=== PATIENT | female | born 1945 | race Caucasian/White ===

== ENCOUNTER 2018-07-05 06:15 | Day surgery (SDC) | payer MEDICARE, BC ==
[2018-07-05] MEDS ORDERED: NITROGLYCERIN SL TABS 0.4 MG TAB SUBLINGUAL PRN ×2 (06:22→08:46)
[2018-07-05] MEDS ORDERED: ALPRAZolam 0.5 MG TAB PO PRN (06:22)
[2018-07-05] MEDS ORDERED: ASPIRIN 325 MG TAB PO STA (06:22)
[2018-07-05] MEDS ORDERED: ALPRAZolam 0.25 MG TAB PO PRN (06:22)
[2018-07-05] MEDS ORDERED: SODIUM CHLORIDE 0.9% 1,000 ML in EMPTY BAG 1 BAG IV ONE (06:22)
[2018-07-05] MEDS ORDERED: ATORVASTATIN 80 MG TAB PO STA (06:22)
[2018-07-05] MEDS ORDERED: MIDAZOLAM 2 MG/2 ML VIAL IVP ONE (07:40)
[2018-07-05] MEDS ORDERED: LIDOCAINE 1% INJ 10MG/ML (20 ML MDV) SQ ONE (07:44)
[2018-07-05] MEDS ORDERED: fentaNYL (PF) 50 MCG/ML 2 ML AMP IVP ONE ×2 (07:48→08:04)
[2018-07-05] MEDS ORDERED: VERAPAMIL SYRINGE (5 MG/10 ML) INTRAARTER ONE (07:48)
[2018-07-05] MEDS ORDERED: HEPARIN SODIUM 1,000 UN/ML (10ML VL) IV ONE ×2 (07:50→08:27)
[2018-07-05] MEDS ORDERED: NITROGLYCERIN 1000MCG/10ML SYRINGE INTRACORON ONE (08:23)
[2018-07-05] MEDS ORDERED: IOPAMIDOL-370 150ML BTL INJ ONE (08:27)
[2018-07-05] MEDS ORDERED: TICAGRELOR 90 MG TAB PO ONE (08:30)
[2018-07-05] MEDS ORDERED: IOPAMIDOL-370 100ML BTL INJ ONE (08:34)
[2018-07-05] MEDS ORDERED: CLOPIDOGREL 75 MG TAB PO PRN (08:45)
[2018-07-05] MEDS ORDERED: MAG HYDROX/AL HYDROX/SIMETH 30 ML CUP PO PRN (08:46)
[2018-07-05] MEDS ORDERED: RX INFO: IV CONTRAST WAS GIVEN 1 EACH MISC MISCELLANE PRN (08:46)
[2018-07-05] MEDS ORDERED: ATROPINE SULFATE 0.1 MG/ML 10ML SYRINGE IV PRN (08:46)
[2018-07-05] MEDS ORDERED: ZOLPIDEM 5 MG TAB PO PRN (08:46)
[2018-07-05] MEDS ORDERED: TICAGRELOR 90 MG TAB PO SCH (09:00)
[2018-07-05] MEDS ORDERED: SODIUM CHLORIDE 0.9% 1,000 ML IV SCH (09:00)
[2018-07-05] MEDS: ACETAMINOPHEN TAB 325 MG TAB PO PRN ×3 (09:50→21:24)
--- NOTE | 2018-07-05 10:30 | CC ---
CARDIAC CATHETERIZATION REPORT CARDIAC CATHETERIZATION AND PERCUTANEOUS CORONARY INTERVENTION DATE OF SERVICE: July 05, 2018 PERFORMING PHYSICIAN: Joseph Curran MD, explosive expert. PROCEDURE PERFORMED: 1. Selective right and left coronary angiogram. 2. Left heart catheterization. 3. Successful stenting of the mid left circumflex using 3.0 x 33 mm Xience drug- eluting stent with an excellent angiographic result and reduction of stenosis from 80% to 90% to 0%. INDICATION: This is a 73-year-old female patient with history of peripheral arterial disease as well as hypertension and dyslipidemia and prior history of smoking was experiencing feeling fatigued and tired and has no energy. She underwent an echocardiogram which revealed normal LV function with mild LVH. Because of that, she was advised to undergo a coronary angiogram to rule out any severe CAD giving her history of PAD as well as multiple risk factors. APPROACH: Right radial artery. COMPLICATION: None. LEVEL OF SEDATION: Moderate with sedation length of 55 minutes. PROCEDURE DESCRIPTION: After obtaining an informed consent, the patient was brought to the cardiac collaborative physician. The right radial artery was cannulated using micropuncture technique, the micropuncture wire passed easily then I placed a 6-Tuvaluan sheath in the right radial artery. After that I gave the patient 2 mg of verapamil IA and 8000 units of heparin IV. Additional 3000 given at the beginning of the procedure. I did selective right and left coronary angiogram using JR4 and JL3.5 catheters. Left heart catheterization was performed using 5-[place]uan pigtail catheter. The procedure was completed without any complication. SELECTIVE CORONARY ANGIOGRAM: 1. Right coronary artery is a large caliber vessel and it is a dominant vessel. The RCA in the proximal portion is tortuous with intermediate lesion appeared to be in the range of 50% to 60%. The RCA in the mid and distal portion appeared to be angiographically normal and bifurcates into PDA and PLV branches and they appear to be normal. 2. The left main is angiographically normal, but is a short left main. It bifurcates into left circumflex and left anterior descending artery. 3. Left Circumflex: The proximal circumflex is angiographically normal. The mid circumflex has a long tubular lesion appeared to be in the range of 80% to 90% and the circumflex distally appeared to be angiographically normal. 4. The LAD: The proximal LAD appeared to have mild disease only. The mid LAD appeared to be angiographically normal and gives rise into the first and second diagonal branches. The first diagonal branch appeared to be angiographically normal and the second diagonal branch appeared to have intermediate lesion in the range of 50%. The distal LAD appeared to be angiographically normal. HEMODYNAMICS: The left ventricular end-diastolic was 8 mmHg without significant gradient across the aortic valve. PCI OF THE LEFT CIRCUMFLEX: Anticoagulation was continued using heparin with continuous ACT monitoring throughout the procedure. Subsequently, I did engage the left main using JL3 guide. I did wire the left circumflex using a whisper wire and run-through wire to straighten the tortuosity in the midportion. After that, I did balloon angioplasty using 3.0 x 12 mm balloon before I deployed 3.0 x 33 mm Xience drug-eluting stent where the stent was positioned under fluoroscopy guidance and deployed under 12 atmospheres for 20 seconds with the following angiogram showing excellent result with reduction of stenosis from 90% to 0%. CONCLUSION: 1. Intermediate disease involving the proximal right coronary artery. 2. Critical disease involving the mid left circumflex. 3. Mild disease involving the left anterior descending artery. 4. Successful stenting of the mid left circumflex as described above. POSTPROCEDURE MANAGEMENT: 1. Maximize medical treatment. 2. Dual antiplatelet therapy. 3. Follow up with the patient. MMODL / IJN: [id number] /
--- NOTE | 2018-07-05 10:30 | LTR ---
July 05, 2018 Re: Sandrine Aguirre Dear Dr. Ambrosio: Ms. Sandrine Aguirre underwent a heart catheterization and she was found to have critical disease involving the left circumflex coronary artery which was stented with good angiographic results. I want to thank you for allowing me to participate in her care and please do not hesitate to call if you have any questions or concerns. Sincerely, MD VISHAL Meneses / BRADN: [id number] /
[2018-07-05] MEDS: VARENICLINE 0.5 MG TAB PO SCH ×2 (14:15→21:39)
[2018-07-05] MEDS: CHOLECALCIFEROL 1,000 UNIT TAB PO SCH (17:43)
[2018-07-05 18:40] VITALS: RESP 16; BMI 28.5
[2018-07-05 20:56] LABS: Calcium 9.3 mg/dL (8.4-10.2)
[2018-07-05 20:58] LABS: Potassium 4.3 mmol/L (3.5-5.1)
[2018-07-05] MEDS ORDERED: ASPIRIN 81 MG PO SCH (21:00)
[2018-07-06 03:33] VITALS: PULSE 59
[2018-07-06 07:11] LABS: Calcium 8.9 mg/dL (8.4-10.2); Potassium 4.2 mmol/L (3.5-5.1)
--- NOTE | 2018-07-06 08:24 | DS ---
DISCHARGE SUMMARY ADMISSION DATE: 07/05/2018 DISCHARGE DATE: 07/06/2018 BRIEF HISTORY: This is a 73-year-old female patient who was not feeling well lately. She was experiencing symptoms of shortness of breath and feeling tired and fatigued. She underwent heart catheterization yesterday and that revealed critical disease involving the mid left circumflex coronary artery. She underwent successful stenting of the mid left circumflex with good angiographic results and without any complication from right radial approach. The patient is going to be discharged home today on dual anti-platelet therapy and I will follow up with the patient in the office as an outpatient. MMODL / IJN: [id number] /
[2018-07-06] MEDS ORDERED: CLOPIDOGREL 75 MG TAB PO STA (08:25)
[2018-07-06] MEDS: CHOLECALCIFEROL 1,000 UNIT TAB PO SCH (08:37)
[2018-07-06] MEDS: VARENICLINE 0.5 MG TAB PO SCH (08:38)
[2018-07-06 08:43] VITALS: BP 130/81; TEMP 98.2
[2018-07-06] MEDS ORDERED: NIFEdipine XL 90 MG TAB.ER.24 PO SCH (09:00)
[2018-07-06] MEDS ORDERED: ASPIRIN 325 MG TAB PO SCH (09:00)
[2018-07-06] MEDS ORDERED: TICAGRELOR 90 MG TAB PO SCH (09:00)
[2018-07-06] MEDS ORDERED: LOSARTAN 50 MG TAB PO SCH (09:00)
[2018-07-06 10:46] LABS: Basophils % (A) 0 %; Eosinophils # (A) 0.2 k/uL (0-0.7); Eosinophils % (A) 2 %; HCT 45.2 % (34.0-46.0); HGB 14.6 gm/dL (11.4-16.0); Lymphocytes # (A) 2.2 k/uL (1.0-4.8); Lymphocytes % (A) 20 %; MCH 30.5 pg (25.0-35.0); MCHC 32.3 g/dL (31.0-37.0); MCV 94.6 fL (80.0-100.0); Mean Platelet Volume 8.5; Monocytes # (A) 0.7 k/uL (0-1.0); Monocytes % (A) 6 %; Neutrophils % (A) 71 %; Platelet Count 225 k/uL (150-450); RBC 4.78 m/uL (3.80-5.40); RDW 13.1 % (11.5-15.5); WBC 11.3 k/uL (3.8-10.6)
== END 2018-07-06 09:40 | disposition home or self-care (01) ==
LOC: CATHCVL 06:15 → 3SCARD 17:20 → CATHCVL 07-06 09:40
PROVIDERS: ATTEND Internal Medicine Interventional Cardiology
DX: I25.110 Atherosclerotic heart disease of native coronary artery with unstable angina pectoris (principal); F17.210 Nicotine dependence, cigarettes, uncomplicated; I77.1 Stricture of artery; I11.9 Hypertensive heart disease without heart failure; E78.5 Hyperlipidemia, unspecified; I73.9 Peripheral vascular disease, unspecified; E78.00 Pure hypercholesterolemia, unspecified; Z79.02 Long term (current) use of antithrombotics/antiplatelets; Z79.899 Other long term (current) drug therapy; Z88.0 Allergy status to penicillin
CPT/HCPCS: 93458; 80048 ×2; 83735; 85025; C1769 ×3; C9600; C1887; C1894; C1874; J2250; J2001; J3010; J1644; Q9967 ×2

== ENCOUNTER 2019-10-28 11:59 | Inpatient (IN) | payer MEDICARE, BC ==
--- NOTE | 2019-10-28 12:31 | ED ---
General Adult HPI - General Chief complaint: Skin/Abscess/Foreign Body Stated complaint: R Leg Wound Time Seen by Provider: 10/28/19 12:05 Source: patient, EMS, RN notes reviewed Mode of arrival: EMS Limitations: no limitations - History of Present Illness Initial comments: Patient is a pleasant 74-year-old female presenting to the emergency Department with right leg wound. Patient is a poor historian. Patient states it is been present for around a week. Patient states she has some sort of disease however is unclear what it is or what he relates to. Nursing report believes it was some sort of vascular disease. Patient originally states there is no discomfort from her right leg and later states that it is uncomfortable. No other areas of concern. Further history is limited. Results from nursing facility. - Related Data Home Medications Medication Instructions Recorded Confirmed Cholecalciferol [Vitamin D3 (25 5,000 unit PO DAILY 06/29/18 07/05/18 Mcg = 1000 Iu)] NIFEdipine [Procardia XL] 90 mg PO DAILY 06/29/18 07/05/18 Telmisartan 20 mg PO DAILY 06/29/18 07/05/18 Varenicline [Chantix Starter Pack] 0.5 mg PO BID 06/29/18 07/05/18 Atorvastatin [Lipitor] 40 mg PO DAILY 07/05/18 07/05/18 Previous Rx's Medication Instructions Recorded Aspirin 325 mg PO DAILY #30 tab 07/06/18 Clopidogrel Bisulfate [Plavix] 75 mg PO DAILY #30 tab 07/06/18 Allergies Allergy/AdvReac Type Severity Reaction Status Date / Time No Known Allergies Allergy Verified 07/05/18 06:34 Review of Systems ROS Statement: Those systems with pertinent positive or pertinent negative responses have been documented in the HPI. ROS Other: All systems not noted in ROS Statement are negative. Constitutional: Denies: fever Eyes: Denies: eye pain ENT: Denies: ear pain Respiratory: Denies: cough Cardiovascular: Denies: chest pain Endocrine: Denies: fatigue Gastrointestinal: Denies: abdominal pain Genitourinary: Denies: dysuria Skin: Reports: as per HPI Neurological: Denies: weakness Past Medical History Past Medical History: Hyperlipidemia, Hypertension, Vascular Disorder Additional Past Medical History / Comment(s): dizziness,SOB w/activity,PVD History of Any Multi-Drug Resistant Organisms: None Reported Past Surgical History: Section, Cholecystectomy, Hysterectomy Additional Past Surgical History / Comment(s): vascular bypass left leg Past Anesthesia/Blood Transfusion Reactions: No Reported Reaction Additional Past Anesthesia/Blood Transfusion Reaction / Comment(s): claustrophobia Past Psychological History: No Psychological Hx Reported Smoking Status: Former smoker Past Alcohol Use History: None Reported Past Drug Use History: None Reported - Past Family History Mother Family Medical History: CVA/TIA Additional Family Medical History / Comment(s): fluid retention at age 90 with CVA Father Family Medical History: Myocardial Infarction ([place]) Additional Family Medical History / Comment(s): [place] @ age 84 General Exam Limitations: no limitations General appearance: alert, in no apparent distress Head exam: Present: normocephalic Eye exam: Present: normal appearance Neck exam: Present: normal inspection Respiratory exam: Present: normal lung sounds bilaterally Cardiovascular Exam: Present: regular rate, normal rhythm Expanded Peripheral pulses: 2+: Dorsalis Pedis (R) GI/Abdominal exam: Present: soft. Absent: tenderness Extremities exam: Present: normal inspection Neurological exam: Present: alert. Absent: motor sensory deficit Psychiatric exam: Present: normal affect, normal mood Skin exam: Present: other (Right lower lateral leg with quarter size stage III ulcer.) Course Vital Signs 10/28/19 12:06 Temperature 97.9 F Pulse Rate 75 Respiratory 18 Rate Blood Pressure 145/72 O2 Sat by Pulse 95 Oximetry Medical Decision Making - Medical Decision Making Patient reevaluated and updated. Case discussed with , covering for hospital call. - Lab Data Result diagrams: 10/28/19 12:48 10/28/19 12:48 Lab Results 10/28/19 10/28/19 10/28/19 Range/Units 12:48 12:48 12:48 WBC 9.7 (3.8-10.6) k/uL RBC 3.53 L (3.80-5.40) m/uL Hgb 11.3 L (11.4-16.0) gm/dL Hct 33.4 L (34.0-46.0) % MCV 94.8 (80.0-100.0) fL MCH 32.0 (25.0-35.0) pg MCHC 33.7 (31.0-37.0) g/dL RDW 15.0 (11.5-15.5) % Plt Count 316 (150-450) k/uL Neutrophils % 74 % Lymphocytes % 13 % Monocytes % 10 % Eosinophils % 1 % Basophils % 0 % Neutrophils # 7.1 (1.3-7.7) k/uL Lymphocytes # 1.2 (1.0-4.8) k/uL Monocytes # 0.9 (0-1.0) k/uL Eosinophils # 0.1 (0-0.7) k/uL Basophils # 0.0 (0-0.2) k/uL Sodium 132 L (137-145) mmol/L Potassium 4.5 (3.5-5.1) mmol/L Chloride 100 (98-107) mmol/L Carbon Dioxide 27 (22-30) mmol/L Anion Gap 5 mmol/L BUN 27 H (7-17) mg/dL Creatinine 1.12 H (0.52-1.04) mg/dL Est GFR (CKD-EPI)AfAm 55 (>60 ml/min/1.73 sqM) Est GFR (CKD-EPI)NonAf 48 (>60 ml/min/1.73 sqM) Glucose 91 (74-99) mg/dL Plasma Lactic Acid Isidro 0.9 (0.7-2.0) mmol/L Calcium 8.5 (8.4-10.2) mg/dL Total Bilirubin 0.7 (0.2-1.3) mg/dL AST 39 H (14-36) U/L ALT 19 (4-34) U/L Alkaline Phosphatase 56 (38-126) U/L Total Protein 6.0 L (6.3-8.2) g/dL Albumin 2.9 L (3.5-5.0) g/dL - Radiology Data Radiology results: image reviewed (X-ray right tib-fib shows mid leg wound. Difficult to exclude subtle early cortical changes posterior margin of mid fibular shaft. Possible early Ostermann myelitis) Disposition Clinical Impression: Leg ulcer Disposition: ADMITTED IP TO THIS HOSP Is patient prescribed a controlled substance at d/c from ED?: No Referrals: Darian Ambrosio MD [Primary Care Provider] - 1-2 days Decision Time: 13:41
[2019-10-28 13:02] LABS: Basophils % (A) 0 %; Eosinophils # (A) 0.1 k/uL (0-0.7); Eosinophils % (A) 1 %; HCT 33.4 % (34.0-46.0); HGB 11.3 gm/dL (11.4-16.0); Lymphocytes # (A) 1.2 k/uL (1.0-4.8); Lymphocytes % (A) 13 %; MCHC 33.7 g/dL (31.0-37.0); MCV 94.8 fL (80.0-100.0); Mean Platelet Volume 7.9; Monocytes # (A) 0.9 k/uL (0-1.0); Monocytes % (A) 10 %; Neutrophils # (A) 7.1 k/uL (1.3-7.7); Neutrophils % (A) 74 %; Platelet Count 316 k/uL (150-450); RBC 3.53 m/uL (3.80-5.40); WBC 9.7 k/uL (3.8-10.6)
[2019-10-28 13:14] LABS: Albumin 2.9 g/dL (3.5-5.0); Calcium 8.5 mg/dL (8.4-10.2); Potassium 4.5 mmol/L (3.5-5.1); Total Bilirubin 0.7 mg/dL (0.2-1.3)
--- NOTE | 2019-10-28 13:15 | XR ---
EXAMINATION TYPE: XR tibia fibula RT DATE OF EXAM: 10/28/2019 COMPARISON: NONE HISTORY: 74-year-old female infection, nonhealing wound TECHNIQUE: 2 views FINDINGS: Osteopenia. There seems to be a wound along the posterior and lateral aspect of the mid leg. No discr ete soft tissue air is seen. Difficult to exclude very subtle early cortical erosion from the posteri or margin of the fibular shaft. No acute fracture seen. No soft tissue gas. IMPRESSION: Posterolateral mid leg wound. Difficult to exclude very subtle early cortical changes along the poste rior margin of the mid fibular shaft. Correlate for any clinically suspected early osteomyelitis.
[2019-10-28] MEDS ORDERED: NALOXONE 0.4 MG/ML 1 ML VIAL IV PRN (13:43)
[2019-10-28] MEDS ORDERED: ACETAMINOPHEN TAB 325 MG TAB PO PRN (13:43)
[2019-10-28] MEDS ORDERED: VANCOMYCIN IV PER PHARMACY 1 EACH MISC MISCELLANE PRN (13:45)
[2019-10-28] MEDS ORDERED: AMPICILLIN-SULBACTAM 1.5 GM in SODIUM CHLORIDE 0.9% 50 ML IVPB SCH (13:45)
[2019-10-28] MEDS ORDERED: VANCOMYCIN 1,500 MG in SODIUM CHLORIDE 0.9% 250 ML IVPB ONE (14:00)
[2019-10-28] MEDS: SODIUM CHLORIDE 0.9% 1,000 ML IV SCH (14:28)
[2019-10-28] MEDS ORDERED: ALBUTEROL NEBULIZED 2.5 MG/3 ML INHALATION PRN (17:52)
[2019-10-28] MEDS ORDERED: bisacodyL 10 MG SUPP RECTAL PRN (17:52)
[2019-10-28] MEDS ORDERED: ONDANSETRON ODT 4 MG TAB PO PRN (17:52)
[2019-10-28] MEDS ORDERED: HYDROcodone/APAP 5-325MG 1 EACH TAB PO PRN (17:52)
[2019-10-28] MEDS ORDERED: polyethylene glycoL 3350 17 GM POWD.PACK PO PRN (17:52)
[2019-10-28] MEDS ORDERED: HYDROmorphone 0.5 MG/0.5 ML SYRINGE IVP PRN (17:54)
[2019-10-28] MEDS ORDERED: ALPRAZolam 0.25 MG TAB PO PRN (17:54)
--- NOTE | 2019-10-28 19:43 | HP ---
HISTORY AND PHYSICAL DATE OF SERVICE: 10/28/2019 CHIEF COMPLAINT: Right leg wound. HISTORY OF PRESENT ILLNESS: This 74-year-old woman with a past medical history of hypertension, hyperlipidemia, history of vascular disorder, history of dizziness, history of section, cholecystectomy, history of vascular bypass in the left leg, claustrophobia, being followed by Dr. Ambrosio in the outpatient setting, was noted to have a right leg ulcer for the past several days and, because of increasing intensity, the patient came to [facility] and was admitted for further evaluation and treatment. There is no history of any fever, rigor or chills. No history of headache, loss of consciousness, seizures at this time. The patient was also seen by Dr. Curran previously and the patient had left circumflex critical stenosis by Dr. Curran also. There is no history of any fever, rigor or chills. No history of headache, loss of consciousness, seizures. PAST MEDICAL HISTORY: History of CAD and stent, history of hypertension, hyperlipidemia, history of peripheral vascular disease. HOME MEDICATIONS: Home medications are MiraLAX, Apresoline, bisacodyl, vitamin B1, Bactrim, Senna, K-Dur 20, Zofran, Procardia XL, lidocaine, probiotic, [place], Neurontin, Pepcid, Colace, Plavix, Celexa, vitamin D3, Coreg, Lipitor Ecotrin, Zyloprim, Ventolin, Tylenol. ALLERGIES: PENICILLIN. FAMILY HISTORY: History of CVA and TIA in the family. SOCIAL HISTORY: No history of smoking. No history of alcohol intake. REVIEW OF SYSTEMS: ENT: Diminished hearing. Diminished vision. CARDIOVASCULAR SYSTEM: No angina, palpitations. RESPIRATORY SYSTEM: As mentioned earlier. GI: As mentioned earlier. : No dysuria or retention. NERVOUS SYSTEM: No numbness, weakness. ALLERGY/IMMUNOLOGY: No asthma, hayfever. MUSCULOSKELETAL: As mentioned earlier. HEMATOLOGY/ONCOLOGY: No history of anemia. ENDOCRINE: No history of diabetes, hypothyroidism. CONSTITUTIONAL: As mentioned earlier. DERMATOLOGY: Negative. RHEUMATOLOGY: Negative. PSYCHIATRY: As mentioned earlier. PHYSICAL EXAMINATION: Alert and oriented x3. Pulse 74, blood pressure 147/68, respiration 18, temperature 98.6, pulse ox 94% on room air. HEENT: Conjunctivae normal. Oral mucosa moist. NECK: No jugular venous distention. No carotid bruit. No lymph node enlargement. CARDIOVASCULAR SYSTEM: S1, S2 muffled. RESPIRATORY SYSTEM: Breath sounds diminished at the bases. No rhonchi. No crackles. ABDOMEN: Soft, non-tender. No mass palpable. LEGS: No edema. No swelling. Examination of right leg: Circumscribed grade 2 to 3 ulcer present on the right lateral aspect of the right leg. NERVOUS SYSTEM: Higher functions as mentioned earlier. Moves all 4 limbs. No focal motor or sensory deficit. LYMPHATICS: No lymph node palpable in neck, axillae or groin. SKIN: No ulcer, rash, bleeding. JOINTS: No active deforming arthropathy. LABS: WBC 9.7, hemoglobin 11.3, and creatinine is 1.12. ASSESSMENT: 1. Subacute right leg ulcer, nonhealing, as well as failure of outpatient treatment. 2. Normocytic anemia. 3. Increased creatinine with possible acute renal failure. 4. Hyponatremia. 5. Increased AST. 6. Hypoalbuminemia with mild protein-calorie malnutrition. 7. Hypertension. 8. Hyperlipidemia. 9. Peripheral vascular disease. 10.History of cholecystectomy. 11.History of vascular bypass in the left leg. 12.History of nicotine dependence. RECOMMENDATIONS AND DISCUSSION: In this 74-year-old woman who presented with multiple complex medical issues, we will monitor the patient closely, continue the current medications, continue symptomatic treatment. Infectious disease and vascular surgery consultations. Vancomycin and Unasyn have been initiated. I would recommend wound cultures and symptomatic treatment. Resume the home medications. Guarded prognosis because of multiple complex medical conditions. Further recommendations to follow. A copy of this forwarded to Dr. Ambrosio, who is the primary physician. MMODL / IJN: [id number] /
[2019-10-28] MEDS: hydrALAZINE HCL 50 MG TAB PO SCH (21:28)
[2019-10-28] MEDS: ATORVASTATIN 40 MG TAB PO SCH (21:28)
[2019-10-28] MEDS: FAMOTIDINE 20 MG TAB PO SCH (21:28)
[2019-10-28] MEDS: HEPARIN SODIUM,PORCINE 5,000 UNIT/ML 1 ML VIAL SQ SCH (21:28)
[2019-10-28] MEDS: GABAPENTIN 300 MG CAP PO SCH (21:28)
[2019-10-28] MEDS: hydrALAZINE HCL 25 MG TAB PO SCH (21:29)
[2019-10-28] MEDS: AMPICILLIN-SULBACTAM 1.5 GM in SODIUM CHLORIDE 0.9% 50 ML IVPB SCH (21:29)
[2019-10-28] MEDS: SENNOSIDES 8.6 MG TAB PO SCH (21:29)
--- NOTE | 2019-10-29 00:01 | P.CONS ---
History of Present Illness - Reason for Consult Consult date: 10/28/19 Right leg wound infection Requesting physician: Terrance Lemons - Chief Complaint Worsening right leg wound x weeks - History of Present Illness Patient is a 74 year female currently at [facility] this patient who did have Chronic nonhealing wound to the right lateral leg the patient has for a couple of weeks, patient is not sure how exactly he started and is currently being taken care off at the wound care at the medical facility, patient currently local wound care has been Hydrofera Blue dressing and apparently she was noticed to have worsening of the wound with surrounding swelling and redness for the patient has been sent to the ER for further evaluation patient has been complaining of pain to the right lateral wound area more of a dull aching at times sharp especially with touching and changing of the dressing and can be as high as 7-8 out of 10 and radiation she has some surrounding swelling redness but no foul-smelling drainage denies high-grade fever with these symptoms the patient has been evaluated by the ER physician on her. The patient has been afebrile her white count has been normal she did have x-rays of the right leg with issues possible changes suspicious for Osteomyelitis, local wound culture has been obtained patient was started on Unasyn and vancomycin and admitted to the hospital infectious disease was consulted for further management of antibiotic therapy Review of Systems Positive point has been mentioned in the HPI rest of the systems are negative Past Medical History Past Medical History: Hyperlipidemia, Hypertension, Vascular Disorder Additional Past Medical History / Comment(s): dizziness,SOB w/activity,PVD History of Any Multi-Drug Resistant Organisms: None Reported Past Surgical History: Section, Cholecystectomy, Hysterectomy Additional Past Surgical History / Comment(s): vascular bypass left leg Past Anesthesia/Blood Transfusion Reactions: No Reported Reaction Additional Past Anesthesia/Blood Transfusion Reaction / Comm: claustrophobia Past Psychological History: No Psychological Hx Reported Smoking Status: Former smoker Past Alcohol Use History: None Reported Additional Past Alcohol Use History / Comment(s): started smoking at age 18,<1ppd. Pt states she hasn't smoked in one week. Past Drug Use History: None Reported - Past Family History Mother Family Medical History: CVA/TIA Additional Family Medical History / Comment(s): fluid retention at age 90 with CVA Father Family Medical History: Myocardial Infarction ([place]) Additional Family Medical History / Comment(s): [place] @ age 84 Medications and Allergies Home Medications Medication Instructions Recorded Confirmed Type Cholecalciferol [Vitamin D3 (25 2,000 unit PO DAILY@69906/29/18 10/28/19 History Mcg = 1000 Iu)] NIFEdipine [Procardia XL] 90 mg PO DAILY@69906/29/18 10/28/19 History Atorvastatin [Lipitor] 40 mg PO HS@209907/05/18 10/28/19 History Acetaminophen [Tylenol] 650 mg PO Q4H PRN 10/28/19 10/28/19 History Albuterol Sulfate [Ventolin HFA] 2 puff INHALATION RT-Q6H PRN 10/28/19 10/28/19 History Allopurinol [Zyloprim] 100 mg PO DAILY@69910/28/19 10/28/19 History Aspirin EC [Ecotrin Low Dose] 81 mg PO DAILY@69910/28/19 10/28/19 History Carvedilol [Coreg] 12.5 mg PO BID@0700,169910/28/19 10/28/19 History Citalopram Hydrobromide [CeleXA] 20 mg PO DAILY@169910/28/19 10/28/19 History Clopidogrel Bisulfate [Plavix] 75 mg PO DAILY@69910/28/19 10/28/19 History Docusate [Colace] 100 mg PO DAILY@69910/28/19 10/28/19 History Famotidine [Pepcid] 20 mg PO HS@209910/28/19 10/28/19 History Gabapentin [Neurontin] 300 mg PO BID@699,209910/28/19 10/28/19 History HYDROcodone/APAP 5-325MG [[place] 1 tab PO QID PRN 10/28/19 10/28/19 History 5-325] L.acidoph,Paracasei, B.lactis 2 cap PO DAILY@119910/28/19 10/28/19 History [Probiotic] Lidocaine 5% Patch [Lidoderm] 1 patch TOPICAL DAILY@69910/28/19 10/28/19 H istory Liquical 30 ml PO BID@0700,0 10/28/19 10/28/19 History Ondansetron [Zofran ODT] 4 mg PO Q4H PRN 10/28/19 10/28/19 History Potassium Chloride ER [K-Dur 20] 20 meq PO DAILY@0700 10/28/19 10/28/19 History Sennosides [Senna] 8.6 mg PO HS@2100 10/28/19 10/28/19 History Sennosides [Senna] 17.2 mg PO BID@1200,1700 10/28/19 10/28/19 History Sulfamethox-Tmp 800-160Mg [Bactrim 1 tab PO BID@0700,1700 10/28/19 10/28/19 History DS 800-160 mg] Vitamin B Complex/Folic Acid 0.4 mg PO DAILY@0700 10/28/19 10/28/19 History [Vitamin B Complex Tablet] bisacodyL [Bisacodyl] 10 mg RECTAL DAILY PRN 10/28/19 10/28/19 History hydrALAZINE HCL [Apresoline] 25 mg PO TID@0700,1300,2100 10/28/19 10/28/19 History hydrALAZINE HCL [Apresoline] 50 mg PO TID@0700,1300,2100 10/28/19 10/28/19 History polyethylene glycoL 3350 [Miralax] 17 gm PO DAILY PRN 10/28/19 10/28/19 History Allergies Allergy/AdvReac Type Severity Reaction Status Date / Time Penicillins Allergy Unknown Verified 10/28/19 14:07 Physical Exam Vitals: Vital Signs Temp Pulse Pulse Resp BP BP Pulse Ox 10/28/19 16:08 98.6 F 74 18 147/68 94 L 10/28/19 14:13 98.7 F 72 18 145/72 95 10/28/19 14:00 74 18 130/82 95 10/28/19 13:00 68 18 136/70 95 10/28/19 12:06 97.9 F 70 18 145/76 94 L Intake and Output 10/28/19 10/28/19 10/28/19 06:59 14:59 22:59 Other: # Voids 1 Weight 77.564 kg 77.564 kg GENERAL DESCRIPTION: An elderly female lying in bed, no distress. No tachypnea or accessory muscle of respiration use. HEENT: Shows Pallor , no scleral icterus. Oral mucous membrane is dry. No pharyngeal erythema or thrush NECK: Trachea central, no thyromegaly. LUNGS: Unlabored breathing. Clear to auscultation anteriorly. No wheeze or cr ackle. HEART: S1, S2, regular rate and rhythm. No loud murmur ABDOMEN: Soft, no tenderness , guarding or rigidity, no organomegaly EXTREMITIES: Right lower leg wound with slough tissue some surrounding redness no foul-smelling drainage SKIN: No rash, no masses palpable. NEUROLOGICAL: The patient is awake, alert, oriented x3, mood and affect normal. Results CBC & Chem 7: 10/28/19 12:48 10/28/19 12:48 Labs: Abnormal Lab Results - Last 24 Hours (Table) 10/28/19 10/28/19 Range/Units 12:48 12:48 RBC 3.53 L (3.80-5.40) m/uL Hgb 11.3 L (11.4-16.0) gm/dL Hct 33.4 L (34.0-46.0) % Sodium 132 L (137-145) mmol/L BUN 27 H (7-17) mg/dL Creatinine 1.12 H (0.52-1.04) mg/dL AST 39 H (14-36) U/L Total Protein 6.0 L (6.3-8.2) g/dL Albumin 2.9 L (3.5-5.0) g/dL Assessment and Plan Assessment: 1- patient with a chronic nonhealing wound on the right lower leg with a question of possible pressure ulcer with evidence of secondary cellulitis recent worsening and abnormal x-ray suspicious forOsteomyelitis will need to cover for the gram-positive skin neda to be the likely pathogen 2- patient with a penicillin ALLERGY however has tolerated Unasyn clinically doubt true penicillin ALLERGY (1) Leg wound, right Current Visit: Yes Status: Acute Code(s): S81.801A - UNSPECIFIED OPEN WOUND, RIGHT LOWER LEG, INITIAL ENCOUNTER SNOMED Code(s): 277339525 (2) Cellulitis of right leg Current Visit: Yes Status: Acute Code(s): L03.115 - CELLULITIS OF RIGHT LOWER LIMB SNOMED Code(s): 768204945 Plan: 1- await possible surgical debridement and deep cultures 2- Vancomycin pharmacy to dose target trough of 15 while watching his kidney function and Vanco trough closely and Unasyn should provide adequate antibiotic coverage 3- local wound care with the medahoney followed by moist dressing to be changed daily Will follow on a clinical condition and cultures to further adjust medication if needed Thank you for this consultation will follow this patient along with you Time with Patient: Greater than 30
[2019-10-29] MEDS: AMPICILLIN-SULBACTAM 1.5 GM in SODIUM CHLORIDE 0.9% 50 ML IVPB SCH ×4 (03:10→20:01)
[2019-10-29] MEDS: SODIUM CHLORIDE 0.9% 1,000 ML IV SCH ×2 (03:10→12:25)
[2019-10-29] MEDS ORDERED: VITAMIN B COMPLEX PO SCH (07:00)
[2019-10-29] MEDS ORDERED: FOLIC ACID PO SCH (07:00)
[2019-10-29] MEDS ORDERED: NON FORMULARY DRUG (Liquical 30 ML) PO SCH (07:00)
[2019-10-29] MEDS: hydrALAZINE HCL 50 MG TAB PO SCH ×3 (08:55→20:02)
[2019-10-29] MEDS: CHOLECALCIFEROL 1,000 UNIT TAB PO SCH (08:55)
[2019-10-29] MEDS: carvediloL 12.5 MG TAB PO SCH ×2 (08:55→16:32)
[2019-10-29] MEDS: hydrALAZINE HCL 25 MG TAB PO SCH ×3 (08:56→20:02)
[2019-10-29] MEDS: DOCUSATE 100 MG CAP PO SCH (08:56)
[2019-10-29] MEDS: NIFEdipine XL 90 MG TAB.ER.24 PO SCH (08:56)
[2019-10-29] MEDS: POTASSIUM CHLORIDE ER 20 MEQ TAB.ER PO SCH (08:56)
[2019-10-29] MEDS: PANTOPRAZOLE 40 MG TABLET PO SCH (08:56)
[2019-10-29] MEDS: CLOPIDOGREL 75 MG TAB PO SCH (08:57)
[2019-10-29] MEDS: GABAPENTIN 300 MG CAP PO SCH ×2 (08:57→20:02)
[2019-10-29] MEDS: HEPARIN SODIUM,PORCINE 5,000 UNIT/ML 1 ML VIAL SQ SCH ×2 (08:57→20:02)
[2019-10-29] MEDS: allopurinoL 100 MG TAB PO SCH (08:57)
[2019-10-29] MEDS: ASPIRIN 81 MG PO SCH (08:57)
[2019-10-29] MEDS: LIDOCAINE 5% PATCH TOPICAL SCH (09:03)
[2019-10-29 09:37] LABS: Basophils % (A) 0 %; Eosinophils % (A) 0 %; HCT 35.5 % (34.0-46.0); HGB 11.3 gm/dL (11.4-16.0); Lymphocytes # (A) 1.1 k/uL (1.0-4.8); Lymphocytes % (A) 14 %; MCH 30.5 pg (25.0-35.0); MCHC 31.7 g/dL (31.0-37.0); MCV 96.1 fL (80.0-100.0); Mean Platelet Volume 7.7; Monocytes # (A) 0.5 k/uL (0-1.0); Monocytes % (A) 6 %; Neutrophils # (A) 6.6 k/uL (1.3-7.7); Neutrophils % (A) 78 %; Platelet Count 336 k/uL (150-450); RDW 15.3 % (11.5-15.5); WBC 8.5 k/uL (3.8-10.6)
[2019-10-29 09:44] LABS: C Reactive Protein 40.7 mg/L (<10.0); Calcium 8.9 mg/dL (8.4-10.2); Potassium 3.9 mmol/L (3.5-5.1)
[2019-10-29 10:25] LABS: Erythrocyte Sedimentation Rate 28 mm/hr (0-20)
--- NOTE | 2019-10-29 11:38 | P.GSCN ---
History of Present Illness Consult date: 10/29/19 Reason for Consult: right lower extremity wound History of present illness: Patient is a 74 year female currently at [facility] this patient who did have Chronic nonhealing wound to the right lateral leg the patient has for a couple of weeks, patient is not sure how exactly he started and is currently being taken care off at the wound care at the medical facility patient was sent to the ER for further evaluation patient has been complaining of pain to the right lateral wound area more of a dull aching at times sharp especially with touching and changing of the dressing and can be as high as 7-8 out of 10 and radiation she has some surrounding swelling redness but no foul-smelling drainage denies high-grade fever with these symptoms the patient has been evaluated by the ER physician on her. Denies any fevers, chills, nausea, vomiting, chest pain or shortness of breath. Review of Systems All systems: negative (what is mentioned in the HPI or PMH) Past Medical History Past Medical History: Hyperlipidemia, Hypertension, Vascular Disorder Additional Past Medical History / Comment(s): dizziness,SOB w/activity,PVD History of Any Multi-Drug Resistant Organisms: None Reported Past Surgical History: Section, Cholecystectomy, Hysterectomy Additional Past Surgical History / Comment(s): vascular bypass left leg Past Anesthesia/Blood Transfusion Reactions: No Reported Reaction Additional Past Anesthesia/Blood Transfusion Reaction / Comm: claustrophobia Past Psychological History: No Psychological Hx Reported Smoking Status: Former smoker Past Alcohol Use History: None Reported Additional Past Alcohol Use History / Comment(s): started smoking at age 18,< 1ppd. Pt states she hasn't smoked in one week. Past Drug Use History: None Reported - Past Family History Mother Family Medical History: CVA/TIA Additional Family Medical History / Comment(s): fluid retention at age 90 with CVA Father Family Medical History: Myocardial Infarction (RI) Additional Family Medical History / Comment(s): RI @ age 84 Medications and Allergies Home Medications Medication Instructions Recorded Confirmed Type Cholecalciferol [Vitamin D3 (25 2,000 unit PO DAILY@0700 06/29/18 10/28/19 History Mcg = 1000 Iu)] NIFEdipine [Procardia XL] 90 mg PO DAILY@0700 06/29/18 10/28/19 History Atorvastatin [Lipitor] 40 mg PO HS@2100 04/01/19 07/24/20 History Acetaminophen [Tylenol] 650 mg PO Q4H PRN 10/28/19 10/28/19 History Albuterol Sulfate [Ventolin HFA] 2 puff INHALATION RT-Q6H PRN 10/28/19 10/28/19 History Allopurinol [Zyloprim] 100 mg PO DAILY@69910/28/19 10/28/19 History Aspirin EC [Ecotrin Low Dose] 81 mg PO DAILY@69910/28/19 10/28/19 History Carvedilol [Coreg] 12.5 mg PO BID@07,169910/28/19 10/28/19 History Citalopram Hydrobromide [CeleXA] 20 mg PO DAILY@169910/28/19 10/28/19 History Clopidogrel Bisulfate [Plavix] 75 mg PO DAILY@69910/28/19 10/28/19 History Docusate [Colace] 100 mg PO DAILY@69910/28/19 10/28/19 History Famotidine [Pepcid] 20 mg PO HS@209910/28/19 10/28/19 History Gabapentin [Neurontin] 300 mg PO BID@699,209910/28/19 10/28/19 History HYDROcodone/APAP 5-325MG [[place] 1 tab PO QID PRN 10/28/19 10/28/19 History 5-325] L.acidoph,Paracasei, B.lactis 2 cap PO DAILY@1200 10/28/19 10/28/19 History [Probiotic] Lidocaine 5% Patch [Lidoderm] 1 patch TOPICAL DAILY@69910/28/19 10/28/19 History Liquical 30 ml PO BID@0700,0 10/28/19 10/28/19 History Ondansetron [Zofran ODT] 4 mg PO Q4H PRN 10/28/19 10/28/19 History Potassium Chloride ER [K-Dur 20] 20 meq PO DAILY@69910/28/19 10/28/19 History Sennosides [Senna] 8.6 mg PO HS@209910/28/19 10/28/19 History Sennosides [Senna] 17.2 mg PO BID@1200,1700 10/28/19 10/28/19 History Sulfamethox-Tmp 800-160Mg [Bactrim 1 tab PO BID@0700,1700 10/28/19 10/28/19 History DS 800-160 mg] Vitamin B Complex/Folic Acid 0.4 mg PO DAILY@0700 10/28/19 10/28/19 History [Vitamin B Complex Tablet] bisacodyL [Bisacodyl] 10 mg RECTAL DAILY PRN 10/28/19 10/28/19 History hydrALAZINE HCL [Apresoline] 25 mg PO TID@0700,1300,2100 10/28/19 10/28/19 History hydrALAZINE HCL [Apresoline] 50 mg PO TID@0700,1300,2100 10/28/19 10/28/19 History polyethylene glycoL 3350 [Miralax] 17 gm PO DAILY PRN 10/28/19 10/28/19 History Allergies Allergy/AdvReac Type Severity Reaction Status Date / Time Penicillins Allergy Unknown Verified 10/28/19 14:07 Surgical - Exam Vital Signs Temp Pulse Resp BP Pulse Ox 97.9 F 75 18 145/72 95 10/28/19 12:06 10/28/19 12:06 10/28/19 12:06 10/28/19 12:06 10/28/19 12:06 Anterior lower leg ulcer measuring 3 x 3 cm. Surrounding erythema noted. Positive tenderness to palpation. No purulent drainage. Some fibrous tissue noted overlying the wound bed. Nonpalpable DP or PT pulses bilaterally. - General well developed, moderate distress, moderate pain - Eyes PERRL, normal ocular movement - ENT normal pinna - Neck no masses - Respiratory other (Diminished breath sounds) - Cardiovascular Rhythm: regular - Abdomen Abdomen: soft, non tender - Integumentary no rash, no growths - Neurologic disoriented - Psychiatric oriented to time, oriented to person, no speech is normal, other (moving all 4 extremities) Results - Labs 10/29/19 09:14 10/29/19 09:14 Abnormal Lab Results - Last 24 Hours (Table) 10/28/19 10/28/19 10/29/19 Range/Units 12:48 12:48 09:14 RBC 3.53 L (3.80-5.40) m/uL Hgb 11.3 L (11.4-16.0) gm/dL Hct 33.4 L (34.0-46.0) % ESR (0-20) mm/hr Sodium 132 L 134 L (137-145) mmol/L BUN 27 H 18 H (7-17) mg/dL Creatinine 1.12 H 1.06 H (0.52-1.04) mg/dL AST 39 H (14-36) U/L C-Reactive Protein 40.7 H (<10.0) mg/L Total Protein 6.0 L (6.3-8.2) g/dL Albumin 2.9 L (3.5-5.0) g/dL 10/29/19 Range/Units 09:14 RBC 3.70 L (3.80-5.40) m/uL Hgb 11.3 L (11.4-16.0) gm/dL Hct (34.0-46.0) % ESR 28 H (0-20) mm/hr Sodium (137-145) mmol/L BUN (7-17) mg/dL Creatinine (0.52-1.04) mg/dL AST (14-36) U/L C-Reactive Protein (<10.0) mg/L Total Protein (6.3-8.2) g/dL Albumin (3.5-5.0) g/dL Microbiology - Last 24 Hours (Table) 10/28/19 12:48 Gram Stain - Preliminary Leg - Right Wound Culture - Preliminary Gram Neg Bacilli Diabetes panel 10/28/19 10/29/19 Range/Units 12:48 09:14 Sodium 132 L 134 L (137-145) mmol/L Potassium 4.5 3.9 (3.5-5.1) mmol/L Chloride 100 101 (98-107) mmol/L Carbon Dioxide 27 25 (22-30) mmol/L BUN 27 H 18 H (7-17) mg/dL Creatinine 1.12 H 1.06 H (0.52-1.04) mg/dL Glucose 91 85 (74-99) mg/dL Calcium 8.5 8.9 (8.4-10.2) mg/dL AST 39 H (14-36) U/L ALT 19 (4-34) U/L Alkaline Phosphatase 56 (38-126) U/L Total Protein 6.0 L (6.3-8.2) g/dL Albumin 2.9 L (3.5-5.0) g/dL Calcium panel 10/28/19 10/29/19 Range/Units 12:48 09:14 Calcium 8.5 8.9 (8.4-10.2) mg/dL Albumin 2.9 L (3.5-5.0) g/dL Pituitary panel 10/28/19 10/29/19 Range/Units 12:48 09:14 Sodium 132 L 134 L (137-145) mmol/L Potassium 4.5 3.9 (3.5-5.1) mmol/L Chloride 100 101 (98-107) mmol/L Carbon Dioxide 27 25 (22-30) mmol/L BUN 27 H 18 H (7-17) mg/dL Creatinine 1.12 H 1.06 H (0.52-1.04) mg/dL Glucose 91 85 (74-99) mg/dL Calcium 8.5 8.9 (8.4-10.2) mg/dL Adrenal panel 10/28/19 10/29/19 Range/Units 12:48 09:14 Sodium 132 L 134 L (137-145) mmol/L Potassium 4.5 3.9 (3.5-5.1) mmol/L Chloride 100 101 (98-107) mmol/L Carbon Dioxide 27 25 (22-30) mmol/L BUN 27 H 18 H (7-17) mg/dL Creatinine 1.12 H 1.06 H (0.52-1.04) mg/dL Glucose 91 85 (74-99) mg/dL Calcium 8.5 8.9 (8.4-10.2) mg/dL Total Bilirubin 0.7 (0.2-1.3) mg/dL AST 39 H (14-36) U/L ALT 19 (4-34) U/L Alkaline Phosphatase 56 (38-126) U/L Total Protein 6.0 L (6.3-8.2) g/dL Albumin 2.9 L (3.5-5.0) g/dL Assessment and Plan Assessment: #1 right lower leg nonhealing ulcer with failed outpatient therapy #2 peripheral arterial disease bilateral lower extremities #3 renal insufficiency #4 anemia #5 hypertension Plan: We'll obtain lower extremity arterial Doppler with ABIs for baseline. Formal debridement to be performed in the next coming days. Patient may need revascularization of her lower extremity depending on Doppler results. Continue local wound care with antibiotics.
[2019-10-29] MEDS: SENNOSIDES 8.6 MG TAB PO SCH ×3 (12:18→20:03)
[2019-10-29] MEDS: LACTOBACILLUS ACIDOPH & BULGAR 1 EACH PACKET PO SCH (12:20)
[2019-10-29] MEDS ORDERED: VANCOMYCIN 1,500 MG in SODIUM CHLORIDE 0.9% 250 ML IVPB SCH (15:00)
[2019-10-29 15:23] VITALS: BMI 27.6
[2019-10-29] MEDS: CITALOPRAM HYDROBROMIDE 20 MG TAB PO SCH (16:32)
[2019-10-29] MEDS: ATORVASTATIN 40 MG TAB PO SCH (20:02)
[2019-10-29] MEDS: FAMOTIDINE 20 MG TAB PO SCH (20:02)
--- NOTE | 2019-10-29 23:08 | PN ---
PROGRESS NOTE DATE OF SERVICE: 10/29/2019 REASON FOR FOLLOWUP: Left lower extremity wound cellulitis. INTERVAL HISTORY: Patient is currently afebrile, has been breathing comfortably. The patient denies having any chest pain. No shortness of breath or cough. No abdominal pain. Overall pain and discomfort to the right leg wound resolved. EXAMINATION: Blood pressure is 149/72 with a pulse of 65, temperature 98.4. She is 93% on room air. General description: The patient is an elderly female lying in bed in no distress. Respiratory system: Unlabored breathing. Clear to auscultation anteriorly. Heart S1, S2. Regular rate and rhythm. Abdomen soft, no tenderness. Right leg wound is currently dressed. No obvious drainage on the dressing. LABS: Wound culture now showing Enterococcus and group D along with gram-negative bacilli. DIAGNOSTIC IMPRESSION AND PLAN: Patient with right leg wound, nonhealing with concern for secondary cellulitis infection. Wound culture with Enterococcus and gram-negative. Patient is covered with Unasyn and vancomycin to continue, adjusting further based on the culture report. Continue supportive care. MMODL / IJN: [id number] /
[2019-10-30] MEDS: AMPICILLIN-SULBACTAM 1.5 GM in SODIUM CHLORIDE 0.9% 50 ML IVPB SCH ×4 (02:48→20:26)
[2019-10-30] MEDS: SODIUM CHLORIDE 0.9% 1,000 ML IV SCH ×2 (05:06→17:16)
[2019-10-30] MEDS: allopurinoL 100 MG TAB PO SCH (07:17)
[2019-10-30] MEDS: ASPIRIN 81 MG PO SCH (07:17)
[2019-10-30] MEDS: POTASSIUM CHLORIDE ER 20 MEQ TAB.ER PO SCH (07:17)
[2019-10-30] MEDS: GABAPENTIN 300 MG CAP PO SCH ×2 (07:17→20:27)
[2019-10-30] MEDS: DOCUSATE 100 MG CAP PO SCH (07:18)
[2019-10-30] MEDS: CLOPIDOGREL 75 MG TAB PO SCH (07:18)
[2019-10-30] MEDS: PANTOPRAZOLE 40 MG TABLET PO SCH (07:18)
[2019-10-30] MEDS: NIFEdipine XL 90 MG TAB.ER.24 PO SCH (07:18)
[2019-10-30] MEDS: HEPARIN SODIUM,PORCINE 5,000 UNIT/ML 1 ML VIAL SQ SCH ×2 (07:18→20:26)
[2019-10-30] MEDS: hydrALAZINE HCL 25 MG TAB PO SCH ×3 (07:18→20:27)
[2019-10-30] MEDS: CHOLECALCIFEROL 1,000 UNIT TAB PO SCH (07:18)
[2019-10-30] MEDS: LIDOCAINE 5% PATCH TOPICAL SCH (07:18)
[2019-10-30] MEDS: carvediloL 12.5 MG TAB PO SCH ×2 (07:18→17:13)
[2019-10-30] MEDS: hydrALAZINE HCL 50 MG TAB PO SCH ×4 (07:18→20:27)
[2019-10-30 08:29] LABS: Basophils % (A) 1 %; Eosinophils # (A) 0.1 k/uL (0-0.7); Eosinophils % (A) 2 %; HCT 36.1 % (34.0-46.0); HGB 11.4 gm/dL (11.4-16.0); Lymphocytes # (A) 1.2 k/uL (1.0-4.8); Lymphocytes % (A) 15 %; MCH 30.5 pg (25.0-35.0); MCHC 31.5 g/dL (31.0-37.0); MCV 96.7 fL (80.0-100.0); Mean Platelet Volume 7.8; Monocytes # (A) 0.6 k/uL (0-1.0); Monocytes % (A) 8 %; Neutrophils # (A) 5.7 k/uL (1.3-7.7); Neutrophils % (A) 74 %; Platelet Count 332 k/uL (150-450); RBC 3.73 m/uL (3.80-5.40); RDW 15.1 % (11.5-15.5); WBC 7.8 k/uL (3.8-10.6)
[2019-10-30 08:32] LABS: Calcium 8.3 mg/dL (8.4-10.2); Potassium 3.7 mmol/L (3.5-5.1)
[2019-10-30] MEDS: SENNOSIDES 8.6 MG TAB PO SCH ×2 (11:25→20:27)
[2019-10-30] MEDS: LACTOBACILLUS ACIDOPH & BULGAR 1 EACH PACKET PO SCH (11:38)
--- NOTE | 2019-10-30 12:22 | P.PN ---
Subjective Progress Note Date: 10/29/19 Principal diagnosis: Nonhealing right lower extremity wound Cellulitis right lower extremity Acute renal failure 74 year female currently at [facility] this patient who did have Chronic nonhealing wound to the right lateral leg the patient has for a couple of weeks, patient is not sure how exactly he started and is currently being taken care off at the wound care at the medical facility, patient currently local wound care has been Hydrofera Blue dressing and apparently she was noticed to have worsening of the wound with surrounding swelling and redness for the patient has been sent to the ER for further evaluation patient has been complaining of pain to the right lateral wound area more of a dull aching at times sharp especially with touching and changing of the dressing and can be as high as 7-8 out of 10 and radiation she has some surrounding swelling redness but no foul-smelling drainage denies high-grade fever with these symptoms the patient has been evaluated by the ER physician Objective - Vital Signs Vital signs: Vital Signs Temp 98.1 F 10/29/19 12:10 Pulse 72 10/29/19 12:10 Resp 18 10/29/19 12:10 BP 117/67 10/29/19 12:10 Pulse Ox 96 10/29/19 12:10 Intake & Output 10/28/19 10/29/19 10/29/19 18:59 06:59 18:59 Intake Total 870 Balance 870 Weight 77.564 kg Intake: Intake, IV Titration 450 Amount Sodium Chloride 0.9% 1, 450 000 ml @ 75 mls/hr IV . [id number] [facility] Rx#:[id number] Oral 420 Other: Voiding Method Diaper Diaper Diaper Incontinent Incontinent Incontinent # Voids 1 1 1 # Bowel Movements 1 - Exam GENERAL DESCRIPTION: An elderly female lying in bed, no distress. No tachypnea or accessory muscle of respiration use. HEENT: Shows Pallor , no scleral icterus. Oral mucous membrane is dry. No pharyngeal erythema or thrush NECK: Trachea central, no thyromegaly. LUNGS: Unlabored breathing. Clear to auscultation anteriorly. No wheeze or crackle. HEART: S1, S2, regular rate and rhythm. No loud murmur ABDOMEN: Soft, no tenderness , guarding or rigidity, no organomegaly EXTREMITIES: Right lower leg wound with slough tissue some surrounding redness no foul-smelling drainage SKIN: No rash, no masses palpable. - Labs CBC & Chem 7: 10/30/19 08:07 10/30/19 08:07 Labs: Abnormal Lab Results - Last 24 Hours (Table) 10/28/19 10/29/19 10/29/19 Range/Units 12:48 09:14 09:14 RBC 3.70 L (3.80-5.40) m/uL Hgb 11.3 L (11.4-16.0) gm/dL ESR 28 H (0-20) mm/hr Sodium 132 L 134 L (137-145) mmol/L BUN 27 H 18 H (7-17) mg/dL Creatinine 1.12 H 1.06 H (0.52-1.04) mg/dL AST 39 H (14-36) U/L C-Reactive Protein 40.7 H (<10.0) mg/L Total Protein 6.0 L (6.3-8.2) g/dL Albumin 2.9 L (3.5-5.0) g/dL Microbiology - Last 24 Hours (Table) 10/28/19 12:48 Gram Stain - Preliminary Leg - Right Wound Culture - Preliminary Gram Neg Bacilli Assessment and Plan Assessment: 1. Nonhealing right lower extremity wound; IDs following and patient has been placed on IV vancomycin and Unasyn; x-ray is suspicious for possible osteomyelitis; local wound care with alissaoney followed by moist dressings to be changed daily IDs following and recommending making further recommendations 2. Right lower extremity cellulitis; continue Unasyn and IV vancomycin until final culture results are available 3. Acute renal injury; patient remains on IV fluids in form of normal saline at a rate of 75 mL an hour; we will monitor strict CORBY's, daily weights, renal function and electrolytes 4. Hyponatremia; continue with normal saline at 75 mL an hour and monitor electrolytes closely 5. Hypertension; stable on home dose of nifedipine, hydralazine and Coreg 6. Hyperlipidemia; atorvastatin 40 mg by mouth daily at bedtime 7. Peripheral vascular disease; remains on aspirin and Plavix 8. Mild protein calorie malnutrition/hypoalbuminemia DVT prophylaxis; subcu heparin CODE STATUS; full code
[2019-10-30] MEDS ORDERED: VANCOMYCIN 1,500 MG in SODIUM CHLORIDE 0.9% 250 ML IVPB SCH (14:00)
--- NOTE | 2019-10-30 14:48 | CT ---
EXAMINATION TYPE: CT brain wo con DATE OF EXAM: 10/30/2019 COMPARISON: None HISTORY: Altered mental status. CT DLP: 1078.4 mGycm Automated exposure control for dose reduction was used. There is cerebral cortical atrophy. There is no mass effect nor midline shift. There is no sign of in tracranial hemorrhage. The calvarium is intact. There is small mucus retention cysts in the sphenoid sinus. IMPRESSION: Cerebral atrophy. No acute intracranial abnormality.
[2019-10-30] MEDS: CITALOPRAM HYDROBROMIDE 20 MG TAB PO SCH (17:13)
[2019-10-30] MEDS: FAMOTIDINE 20 MG TAB PO SCH (20:27)
[2019-10-30] MEDS: ATORVASTATIN 40 MG TAB PO SCH (20:27)
[2019-10-30] MEDS: ERTAPENEM 1 GM in SODIUM CHLORIDE 0.9% 50 ML IVPB SCH (23:21)
--- NOTE | 2019-10-30 23:54 | PN ---
PROGRESS NOTE DATE OF SERVICE: 10/30/2019 REASON FOR FOLLOWUP: Right leg wound infection and cellulitis. INTERVAL HISTORY: The patient is currently afebrile. The patient has been breathing comfortably. Denies having any chest pain or shortness of breath or cough. No nausea, no vomiting. No abdominal pain or any worsening pain in the right leg. PHYSICAL EXAMINATION: Blood pressure 123/67 with a pulse of 76, temperature 98.2. She is 93% on room air. General description is an elderly female lying in bed in no distress. RESPIRATORY SYSTEM: Unlabored breathing, clear to auscultation anteriorly. HEART: S1, S2. Regular rate and rhythm. ABDOMEN: Soft, no tenderness. Right leg is currently dressed up. No obvious drainage on the dressing. LABS: Hemoglobin 11.4, white count 7.8, creatinine 0.88. Wound culture has been finalized with Enterococcus and ESBL E coli. DIAGNOSTIC IMPRESSION AND PLAN: Patient with right leg wound infection with secondary cellulitis. Culture has been positive for drug-resistant Escherichia coli and Enterococcus. We will discontinue Unasyn and vancomycin. Start the patient on Invanz. Await surgical debridement. Local care to continue with [facility]. MMODL / IJN: [id number] /
[2019-10-31] MEDS ORDERED: LIDOCAINE 4% CREAM 5 GM TUBE TOPICAL STA (08:04)
--- NOTE | 2019-10-31 08:08 | P.PN ---
Subjective Progress Note Date: 10/31/19 Principal diagnosis: right lower extremity non healing ulcer. Patient was seen and examined. No acute events overnight. doing well this morning. Complaining of some mild pain at the right posterior leg at the ulcer site. No nausea, vomiting, fevers, chills, chest pain or shortness of breath. SALONI- .92 on the right and .84 on the left Objective - Vital Signs Vital signs: Vital Signs Temp 99.1 F 10/31/19 07:00 Pulse 80 10/31/19 07:00 Resp 20 10/31/19 07:00 BP 156/81 10/31/19 07:00 Pulse Ox 96 10/31/19 07:00 Intake & Output 10/30/19 10/31/19 10/31/19 18:59 06:59 18:59 Intake Total 450 100 Output Total 200 Balance 450 -100 Intake: Intake, IV Titration 450 Amount Sodium Chloride 0.9% 1, 450 000 ml @ 75 mls/hr IV . [id number] [facility] Rx#:[id number] Oral 100 Output: Urine 200 Other: Voiding Method Diaper Diaper Incontinent Incontinent # Voids 2 1 - Exam mutliphasic dp and pt signals bilaterally 3x2cm posterior leg ulcer with fibrinous tissue, overlying eschar. No purulent drainage. No exposed tendon, ligament or bone. - Constitutional General appearance: Present: cooperative, obese - EENT Eyes: Present: PERRLA - Neck Neck: Present: normal ROM. Absent: lymphadenopathy - Respiratory Respiratory: bilateral: CTA - Cardiovascular Rhythm: regular - Integumentary Integumentary: Absent: cellulitis, cyanotic - Neurologic Neurologic: Absent: focal deficits - Psychiatric Psychiatric: Present: appropriate affect - Labs CBC & Chem 7: 10/30/19 08:07 10/30/19 08:07 Labs: Abnormal Lab Results - Last 24 Hours (Table) 10/30/19 10/30/19 Range/Units 08:07 08:07 RBC 3.73 L (3.80-5.40) m/uL Sodium 136 L (137-145) mmol/L Glucose 108 H (74-99) mg/dL Calcium 8.3 L (8.4-10.2) mg/dL Microbiology - Last 24 Hours (Table) 10/28/19 12:48 Gram Stain - Final Leg - Right Wound Culture - Final Escherichia coli Enterococcus faecalis 10/28/19 12:48 Blood Culture - Preliminary Blood No Growth after 48 hours Assessment and Plan Assessment: #1 right lower leg nonhealing ulcer with failed outpatient therapy #2 peripheral arterial disease bilateral lower extremities #3 renal insufficiency #4 anemia #5 hypertension Plan: Arterial dopplers reviewed- sufficient blood flow to the lower leg noted and wounds should heal. Debridement today at the bedside performed with a 15 blade scalpel down to bleeding subcutaneous tissues. Continue local wound care- recommend Maeyl as outpatient and follow up in the wound care center.
[2019-10-31 08:16] LABS: Basophils % (A) 1 %; Eosinophils # (A) 0.2 k/uL (0-0.7); Eosinophils % (A) 2 %; HCT 33.3 % (34.0-46.0); HGB 10.6 gm/dL (11.4-16.0); Lymphocytes # (A) 1.5 k/uL (1.0-4.8); Lymphocytes % (A) 17 %; MCH 30.5 pg (25.0-35.0); MCHC 31.8 g/dL (31.0-37.0); MCV 95.9 fL (80.0-100.0); Monocytes # (A) 0.7 k/uL (0-1.0); Monocytes % (A) 8 %; Neutrophils # (A) 5.8 k/uL (1.3-7.7); Neutrophils % (A) 69 %; Platelet Count 350 k/uL (150-450); RBC 3.48 m/uL (3.80-5.40); RDW 15.1 % (11.5-15.5); WBC 8.4 k/uL (3.8-10.6)
[2019-10-31 08:29] LABS: Calcium 8.3 mg/dL (8.4-10.2)
[2019-10-31] MEDS: hydrALAZINE HCL 25 MG TAB PO SCH ×3 (09:19→21:08)
[2019-10-31] MEDS: HEPARIN SODIUM,PORCINE 5,000 UNIT/ML 1 ML VIAL SQ SCH ×2 (09:19→21:08)
[2019-10-31] MEDS: POTASSIUM CHLORIDE ER 20 MEQ TAB.ER PO SCH (09:19)
[2019-10-31] MEDS: hydrALAZINE HCL 50 MG TAB PO SCH ×3 (09:19→21:09)
[2019-10-31] MEDS: CHOLECALCIFEROL 1,000 UNIT TAB PO SCH (09:20)
[2019-10-31] MEDS: ASPIRIN 81 MG PO SCH (09:20)
[2019-10-31] MEDS: PANTOPRAZOLE 40 MG TABLET PO SCH (09:20)
[2019-10-31] MEDS: NIFEdipine XL 90 MG TAB.ER.24 PO SCH (09:20)
[2019-10-31] MEDS: GABAPENTIN 300 MG CAP PO SCH ×2 (09:21→21:09)
[2019-10-31] MEDS: allopurinoL 100 MG TAB PO SCH (09:21)
[2019-10-31] MEDS: DOCUSATE 100 MG CAP PO SCH (09:21)
[2019-10-31] MEDS: LIDOCAINE 5% PATCH TOPICAL SCH (09:22)
[2019-10-31] MEDS: CLOPIDOGREL 75 MG TAB PO SCH (09:22)
[2019-10-31] MEDS: carvediloL 12.5 MG TAB PO SCH ×2 (09:22→17:54)
[2019-10-31] MEDS: SODIUM CHLORIDE 0.9% 1,000 ML IV SCH ×2 (09:27→22:51)
--- NOTE | 2019-10-31 10:14 | P.PN ---
Subjective Progress Note Date: 10/30/19 Principal diagnosis: Nonhealing right lower extremity wound Cellulitis right lower extremity Acute renal failure 74 year female currently at [facility] this patient who did have Chronic nonhealing wound to the right lateral leg the patient has for a couple of weeks, patient is not sure how exactly he started and is currently being taken care off at the wound care at the medical facility, patient currently local wound care has been Hydrofera Blue dressing and apparently she was noticed to have worsening of the wound with surrounding swelling and redness for the patient has been sent to the ER for further evaluation patient has been complaining of pain to the right lateral wound area more of a dull aching at times sharp especially with touching and changing of the dressing and can be as high as 7-8 out of 10 and radiation she has some surrounding swelling redness but no foul-smelling drainage denies high-grade fever with these symptoms the patient has been evaluated by the ER physician 10/30/2019 Patient is seen and evaluated in room at bedside and also discussed with RN; concerns about patient being sleepy and fairly difficult to arouse this morning Patient is sleepy but easily arousable; she denies any specific complaints; vital signs are stable with a temperature of 98.2, pulse 76, respiration 16 and blood pressure 123/67 with SpO2 of 93% on room air Lab review shows a white blood count of 7.8; final wound culture shows enterococcus and ESBL positive E. coli that are multiple drug resistant IDs following; Unasyn and vancomycin is discontinued and patient is started on Invanz; await surgery to evaluate patient for possible debridement; continue with local wound care as recommended by ID Objective - Vital Signs Vital signs: Vital Signs Temp 97.7 F 10/30/19 07:00 Pulse 70 10/30/19 11:31 Resp 18 10/30/19 11:31 BP 151/76 10/30/19 11:31 Pulse Ox 95 10/30/19 11:31 Intake & Output 10/29/19 10/30/19 10/30/19 18:59 06:59 18:59 Intake Total 870 100 Balance 870 100 Weight 77.564 kg Intake: Intake, IV Titration 450 Amount Sodium Chloride 0.9% 1, 450 000 ml @ 75 mls/hr IV . [id number] [facility] Rx#:[id number] Oral 420 100 Other: Voiding Method Diaper Diaper Diaper Incontinent Incontinent Incontinent # Voids 2 3 # Bowel Movements 2 - Exam GENERAL DESCRIPTION: An elderly female lying in bed, no distress. No tachypnea or accessory muscle of respiration use. HEENT: Shows Pallor , no scleral icterus. Oral mucous membrane is dry. No pharyngeal erythema or thrush NECK: Trachea central, no thyromegaly. LUNGS: Unlabored breathing. Clear to auscultation anteriorly. No wheeze or crackle. HEART: S1, S2, regular rate and rhythm. No loud murmur ABDOMEN: Soft, no tenderness , guarding or rigidity, no organomegaly EXTREMITIES: Right lower leg wound with slough tissue some surrounding redness no foul-smelling drainage SKIN: No rash, no masses palpable. - Labs CBC & Chem 7: 10/31/19 07:19 10/31/19 07:19 Labs: Abnormal Lab Results - Last 24 Hours (Table) 10/30/19 10/30/19 Range/Units 08:07 08:07 RBC 3.73 L (3.80-5.40) m/uL Sodium 136 L (137-145) mmol/L Glucose 108 H (74-99) mg/dL Calcium 8.3 L (8.4-10.2) mg/dL Microbiology - Last 24 Hours (Table) 10/28/19 12:48 Gram Stain - Preliminary Leg - Right Wound Culture - Preliminary Escherichia coli Group D Enterococcus 10/28/19 12:48 Blood Culture - Preliminary Blood No Growth after 24 hours Assessment and Plan Assessment: 1. Nonhealing right lower extremity wound; IDs following and patient has been placed on IV vancomycin and Unasyn; x-ray is suspicious for possible osteomyelitis; local wound care with farhia followed by moist dressings to be changed daily IDs following and recommending making further recommendations 2. Right lower extremity cellulitis; continue Unasyn and IV vancomycin until final culture results are available 3. Acute renal injury; patient remains on IV fluids in form of normal saline at a rate of 75 mL an hour; we will monitor strict CROBY's, daily weights, renal function and electrolytes 4. Hyponatremia; continue with normal saline at 75 mL an hour and monitor electrolytes closely 5. Hypertension; stable on home dose of nifedipine, hydralazine and Coreg 6. Hyperlipidemia; atorvastatin 40 mg by mouth daily at bedtime 7. Peripheral vascular disease; remains on aspirin and Plavix 8. Mild protein calorie malnutrition/hypoalbuminemia DVT prophylaxis; subcu heparin CODE STATUS; full code
[2019-10-31] MEDS: LACTOBACILLUS ACIDOPH & BULGAR 1 EACH PACKET PO SCH (13:18)
--- NOTE | 2019-10-31 14:34 | PN ---
PROGRESS NOTE DATE OF SERVICE: 10/31/2019 REASON FOR FOLLOWUP: Right ankle infected wound, ESBL E coli. INTERVAL HISTORY: The patient is currently afebrile. The patient did have bedside debridement of her wound, which was only to the muscle, NO extension down. The patient tolerated the procedure. No chest pain, no cough. No abdominal pain, no diarrhea. PHYSICAL EXAMINATION: Blood pressure 156/81 with a pulse of 80, temperature 99.1. She is 96% on room air. General description is an elderly female, lying in bed in no distress. RESPIRATORY SYSTEM: Unlabored breathing, clear to auscultation anteriorly. HEART: S1, S2. Regular rate and rhythm. ABDOMEN: Soft, no tenderness. Right leg wound is dressed with no obvious drainage on the dressing. LABS: Hemoglobin is 12.1, white count 8.4, creatinine 0.78. DIAGNOSTIC IMPRESSION AND PLAN: Patient with right leg infected wound with secondary cellulitis, culture with ESBL E coli, Enterococcus. She is status post debridement. He will get a midline. Continue with the Invanz 1 g daily for 2 weeks and close outpatient followup. MMODL / IJN: [id number] /
[2019-10-31] MEDS: CITALOPRAM HYDROBROMIDE 20 MG TAB PO SCH (17:54)
[2019-10-31] MEDS: ATORVASTATIN 40 MG TAB PO SCH (21:09)
[2019-10-31] MEDS: FAMOTIDINE 20 MG TAB PO SCH (21:09)
[2019-10-31] MEDS: SENNOSIDES 8.6 MG TAB PO SCH (21:09)
[2019-10-31] MEDS: ERTAPENEM 1 GM in SODIUM CHLORIDE 0.9% 50 ML IVPB SCH (21:18)
--- NOTE | 2019-10-31 23:36 | P.PN ---
Progress Note - Text Progress Note Date: 10/31/19 Presenting complaint: Nonhealing right lower extremity wound Interval history: Per records: 74 year female currently at [facility] this patient who did have Chronic nonhealing wound to the right lateral leg the patient has for a couple of weeks, patient is not sure how exactly he started and is currently being taken care off at the wound care at the medical facility, patient currently local wound care has been Hydrofera Blue dressing and apparently she was noticed to have worsening of the wound with surrounding swelling and redness for the patient has been sent to the ER for further evaluation patient has been complaining of pain to the right lateral wound area more of a dull aching at times sharp especially with touching and changing of the dressing and can be as high as 7-8 out of 10 and radiation she has some surrounding swelling redness but no foul-smelling drainage denies high-grade fever with these symptoms the patient has been evaluated by the ER physician. Today-patient had debridement of the wound candidate out by Dr. Marte. Dress ing in place. Pain control. Tolerated diet Review of systems: Was done for constitutional, cardiovascular, GI, pulmonary. relevant finding as above Active Medications Acetaminophen (Tylenol Tab) 650 mg PO Q6HR PRN PRN Reason: Mild Pain or Fever > 100.5 Last Admin: 10/30/19 11:38 Dose: 650 mg Documented by: Hydrocodone Bitart/Acetaminophen ([place] 5-325) 1 each PO QID PRN PRN Reason: Pain Last Admin: 10/31/19 09:21 Dose: 1 each Documented by: Albuterol Sulfate (Ventolin Nebulized) 2.5 mg INHALATION RT-Q6H PRN PRN Reason: SHORTNESS OF BREATH Allopurinol (Zyloprim) 100 mg PO DAILY@0700 [facility] Last Admin: 10/31/19 09:21 Dose: 100 mg Documented by: Alprazolam (Xanax) 0.25 mg PO TID PRN PRN Reason: Anxiety Aspirin (Aspirin) 81 mg PO DAILY@0700 [facility] Last Admin: 10/31/19 09:20 Dose: 81 mg Documented by: Atorvastatin Calcium (Lipitor) 40 mg PO HS@2100 JAYLIN Last Admin: 10/31/19 21:09 Dose: 40 mg Documented by: Bisacodyl (Dulcolax) 10 mg RECTAL DAILY PRN PRN Reason: Constipation Carvedilol (Coreg) 12.5 mg PO BID@0700,1700 [facility] Last Admin: 10/31/19 17:54 Dose: 12.5 mg Documented by: Cholecalciferol (Vitamin D3 (25 Mcg = 1000 Iu)) 2,000 unit PO DAILY@0700 [facility] Last Admin: 10/31/19 09:20 Dose: 2,000 unit Documented by: Citalopram Hydrobromide (Celexa) 20 mg PO DAILY@1700 [facility] Last Admin: 10/31/19 17:54 Dose: 20 mg Documented by: Clopidogrel Bisulfate (Plavix) 75 mg PO DAILY@0700 [facility] Last Admin: 10/31/19 09:22 Dose: 75 mg Documented by: Docusate Sodium (Colace) 100 mg PO DAILY@07 [facility] Last Admin: 10/31/19 09:21 Dose: 100 mg Documented by: Famotidine (Pepcid) 20 mg PO HS@2100 [facility] Last Admin: 10/31/19 21:09 Dose: 20 mg Documented by: Gabapentin (Neurontin) 300 mg PO BID@0700,2100 [facility] Last Admin: 10/31/19 21:09 Dose: 300 mg Documented by: Heparin Sodium (Porcine) (Heparin) 5,000 unit SQ Q12HR [facility] Last Admin: 10/31/19 21:08 Dose: 5,000 unit Documented by: Hydralazine HCl (Apresoline) 50 mg PO TID@0700,1300,2100 [facility] Last Admin: 10/31/19 21:09 Dose: 50 mg Documented by: Hydralazine HCl (Apresoline) 25 mg PO TID@0700,1300,2100 [facility] Last Admin: 10/31/19 21:08 Dose: 25 mg Documented by: Hydromorphone HCl (Dilaudid) 0.5 mg IVP Q6HR PRN PRN Reason: Severe Pain Sodium Chloride (Saline 0.9%) 1,000 mls @ 75 mls/hr IV .[id number] [facility] Last Admin: 10/31/19 22:51 Dose: Not Given Documented by: Ertapenem 1 gm/ Sodium (Chloride) 50 mls @ 100 mls/hr IVPB DAILY@2100 [facility]; Protocol Last Admin: 07/27/20 21:18 Dose: 100 mls/hr Documented by: Lactobacillus Acidoph/Bulgaricus (Lactinex) 2 each PO DAILY@1200 [facility] Last Admin: 10/31/19 13:18 Dose: Not Given Documented by: Lidocaine (Lidoderm) 1 patch TOPICAL DAILY@07 [facility] Last Admin: 10/31/19 09:22 Dose: 1 patch Documented by: Naloxone HCl (Narcan) 0.2 mg IV Q2M PRN PRN Reason: Opioid Reversal Nifedipine (Procardia Xl) 90 mg PO DAILY@07 [facility] Last Admin: 10/31/19 09:20 Dose: 90 mg Documented by: Ondansetron HCl (Zofran Odt) 4 mg PO Q4H PRN PRN Reason: Nausea Pantoprazole Sodium (Protonix) 40 mg PO AC-BRKFST [facility] Last Admin: 10/31/19 09:20 Dose: 40 mg Documented by: Polyethylene Glycol (Miralax) 17 gm PO DAILY PRN PRN Reason: Constipation Potassium Chloride (K-Dur 20) 20 meq PO DAILY@07 [facility] Last Admin: 10/31/19 09:19 Dose: 20 meq Documented by: Senna (Senokot) 8.6 mg PO HS@2100 [facility] Last Admin: 10/31/19 21:09 Dose: 8.6 mg Documented by: On examination: VITAL SIGNS: 97.8, 58, 22, 133/74, 98% room air GENERAL APPEARANCE: Sitting up in a chair, comfortable legs are up. HEENT: Normal external appearance of nose and ear. Oral cavity normal EYES: Pupils equal. Conjunctiva normal. NECK: JVD not raised. Mass not palpable. RESPIRATORY: Respiratory effort normal. Lungs clear to auscultation. CARDIOVASCULAR: First and second sounds normal. No edema. ABDOMEN: Soft. Liver and spleen not palpable. No tenderness. No mass palpable. PSYCHIATRY: Alert and oriented x3. Mood and affect normal. EXTREMITIES: Dressing over the right lower extremity INVESTIGATIONS, reviewed in the clinical context: White count 8.4 hemoglobin 10.6 potassium 4 creatinine 0.78 Right leg wounds-E. coli, Enterococcus faecalis Assessment: -Right lower extremity infected wound with secondary cellulitis cultures positive for E. coli and enterococcus. Status post debridement. -Essential hypertension -Hyperlipidemia -Peripheral arterial disease -Chronic nicotine dependence cigarette smoker Plan: Patient had debridement done earlier today. Carnitine IV ertapenem. Midline was ordered. Home antibiotics per Dr. Leblanc. Patient should be able to return to the ECF tomorrow
[2019-11-01] MEDS: LIDOCAINE 5% PATCH TOPICAL SCH (08:32)
[2019-11-01] MEDS: CHOLECALCIFEROL 1,000 UNIT TAB PO SCH (08:32)
[2019-11-01] MEDS: hydrALAZINE HCL 25 MG TAB PO SCH ×2 (08:33→17:22)
[2019-11-01] MEDS: GABAPENTIN 300 MG CAP PO SCH (08:33)
[2019-11-01] MEDS: HEPARIN SODIUM,PORCINE 5,000 UNIT/ML 1 ML VIAL SQ SCH (08:34)
[2019-11-01] MEDS: CLOPIDOGREL 75 MG TAB PO SCH (08:34)
[2019-11-01] MEDS: ASPIRIN 81 MG PO SCH (08:34)
[2019-11-01] MEDS: carvediloL 12.5 MG TAB PO SCH ×2 (08:34→17:24)
[2019-11-01] MEDS: hydrALAZINE HCL 50 MG TAB PO SCH ×2 (08:34→17:21)
[2019-11-01] MEDS: DOCUSATE 100 MG CAP PO SCH (08:35)
[2019-11-01] MEDS: allopurinoL 100 MG TAB PO SCH (08:35)
[2019-11-01] MEDS: NIFEdipine XL 90 MG TAB.ER.24 PO SCH (08:35)
[2019-11-01] MEDS: PANTOPRAZOLE 40 MG TABLET PO SCH (08:35)
[2019-11-01] MEDS: POTASSIUM CHLORIDE ER 20 MEQ TAB.ER PO SCH (08:36)
--- NOTE | 2019-11-01 14:26 | P.DS ---
Providers Date of admission: 10/28/19 13:34 Expected date of discharge: 11/01/19 Attending physician: Daniel Reis Consults: 10/28/19 13:44 Consult Physician Urgent Consulting Provider: Romaine Marte Consult Reason/Comments: leg ulcer Do you want consulting provider notified?: Yes Consult Physician Urgent Consulting Provider: Jorge Kay Consult Reason/Comments: leg ulcer Do you want consulting provider notified?: Yes Primary care physician: Darian Noel [facility] [place] Course: Presenting complaint: Nonhealing right lower extremity wound Interval history: Per records: 74 year female currently at [facility] this patient who did have Chronic nonhealing wound to the right lateral leg the patient has for a couple of weeks, patient is not sure how exactly he started and is currently being taken care off at the wound care at the medical facility, patient currently local wound care has been Hydrofera Blue dressing and apparently she was noticed to have worsening of the wound with surrounding swelling and redness for the patient has been sent to the ER for further evaluation patient has been complaining of pain to the right lateral wound area more of a dull aching at times sharp especially with touching and changing of the dressing and can be as high as 7-8 out of 10 and radiation she has some surrounding swelling redness but no foul-smelling drainage denies high-grade fever with these symptoms the patient has been evaluated by the ER physician. debridement of the wound - by Dr. Matre. IV Invanz for another 14 days per ID Today-sitting up in a chair. Feeling well. Pain control. Did tolerate her diet. Consultation: Dr. Marte from vascular Dr. Kay from ID On examination: VITAL SIGNS: 97.8, 83, grade 2, 135/79, 98% room air GENERAL APPEARANCE: Sitting up in a chair, comfortable, legs are up. HEENT: Normal external appearance of nose and ear. Oral cavity normal EYES: Pupils equal. Conjunctiva normal. NECK: JVD not raised. Mass not palpable. RESPIRATORY: Respiratory effort normal. Lungs clear to auscultation. CARDIOVASCULAR: First and second sounds normal. No edema. ABDOMEN: Soft. Liver and spleen not palpable. No tenderness. No mass palpable. PSYCHIATRY: Alert and oriented x3. Mood and affect normal. EXTREMITIES: Dressing over the right lower extremity INVESTIGATIONS, reviewed in the clinical context: White count 8.4 hemoglobin 10.6 potassium 4 creatinine 0.78 Right leg wounds-E. coli, Enterococcus faecalis Assessment: -Right lower extremity infected wound with secondary cellulitis cultures positive for E. coli and enterococcus. Status post debridement. -Essential hypertension -Hyperlipidemia -Peripheral arterial disease -Chronic nicotine dependence cigarette smoker -Normocytic anemia of chronic disease Disposition: [facility], [facility] facility Labs: CBC BMP-1 week Plan - Discharge Summary Discharge Rx Participant: No New Discharge Prescriptions: New Ertapenem [INVanz] 1 gm IVPB Q24H #14 bag Continue Cholecalciferol [Vitamin D3 (25 Mcg = 1000 Iu)] 2,000 unit PO DAILY@0700 NIFEdipine [Procardia XL] 90 mg PO DAILY@0700 Atorvastatin [Lipitor] 40 mg PO HS@2100 Ondansetron [Zofran ODT] 4 mg PO Q4H PRN PRN Reason: Nausea Albuterol Sulfate [Ventolin HFA] 2 puff INHALATION RT-Q6H PRN PRN Reason: Nausea Acetaminophen [Tylenol] 650 mg PO Q4H PRN PRN Reason: Pain polyethylene glycoL 3350 [Miralax] 17 gm PO DAILY PRN PRN Reason: Constipation bisacodyL [Bisacodyl] 10 mg RECTAL DAILY PRN PRN Reason: Constipation hydrALAZINE HCL [Apresoline] 25 mg PO TID@0700,1300,2100 hydrALAZINE HCL [Apresoline] 50 mg PO TID@0700,1300,2100 Sennosides [Senna] 17.2 mg PO BID@1200,1700 Liquical 30 ml PO BID@0700,1700 Carvedilol [Coreg] 12.5 mg PO BID@0700,1700 Vitamin B Complex/Folic Acid [Vitamin B Complex Tablet] 0.4 mg PO DAILY@0700 Sennosides [Senna] 8.6 mg PO HS@2100 Potassium Chloride ER [K-Dur 20] 20 meq PO DAILY@0700 L.acidoph,Paracasei, B.lactis [Probiotic] 2 cap PO DAILY@1200 Famotidine [Pepcid] 20 mg PO HS@2100 Citalopram Hydrobromide [CeleXA] 20 mg PO DAILY@1700 Aspirin EC [Ecotrin Low Dose] 81 mg PO DAILY@0700 Allopurinol [Zyloprim] 100 mg PO DAILY@07 Clopidogrel Bisulfate [Plavix] 75 mg PO DAILY@07 Lidocaine 5% Patch [Lidoderm 5% Patch] 1 patch TOPICAL DAILY@699 #3 patch Gabapentin [Neurontin] 300 mg PO BID@699,2099 #6 cap HYDROcodone/APAP 5-325MG [[place] 5-325] 1 tab PO QID PRN #12 tab PRN Reason: Pain Discontinued Sulfamethox-Tmp 800-160Mg [Bactrim DS 800-160 mg] 1 tab PO BID@0700,1700 Docusate [Colace] 100 mg PO DAILY@07 Discharge Medication List Cholecalciferol [Vitamin D3 (25 Mcg = 1000 Iu)] 2,000 unit PO DAILY@69906/29/18 [History] NIFEdipine [Procardia XL] 90 mg PO DAILY@69906/29/18 [History] Atorvastatin [Lipitor] 40 mg PO HS@209907/05/18 [History] Acetaminophen [Tylenol] 650 mg PO Q4H PRN 10/28/19 [History] Albuterol Sulfate [Ventolin HFA] 2 puff INHALATION RT-Q6H PRN 10/28/19 [History] Allopurinol [Zyloprim] 100 mg PO DAILY@69910/28/19 [History] Aspirin EC [Ecotrin Low Dose] 81 mg PO DAILY@69910/28/19 [History] Carvedilol [Coreg] 12.5 mg PO BID@0700,1700 10/28/19 [History] Citalopram Hydrobromide [CeleXA] 20 mg PO DAILY@169910/28/19 [History] Clopidogrel Bisulfate [Plavix] 75 mg PO DAILY@69910/28/19 [History] Famotidine [Pepcid] 20 mg PO HS@209910/28/19 [History] L.acidoph,Paracasei, B.lactis [Probiotic] 2 cap PO DAILY@1200 10/28/19 [History] Liquical 30 ml PO BID@0700,1700 10/28/19 [History] Ondansetron [Zofran ODT] 4 mg PO Q4H PRN 10/28/19 [History] Potassium Chloride ER [K-Dur 20] 20 meq PO DAILY@0710/28/19 [History] Sennosides [Senna] 8.6 mg PO HS@209910/28/19 [History] Sennosides [Senna] 17.2 mg PO BID@1200,1700 10/28/19 [History] Vitamin B Complex/Folic Acid [Vitamin B Complex Tablet] 0.4 mg PO DAILY@0710/28/19 [History] bisacodyL [Bisacodyl] 10 mg RECTAL DAILY PRN 10/28/19 [History] hydrALAZINE HCL [Apresoline] 25 mg PO TID@0700,1300,209910/28/19 [History] hydrALAZINE HCL [Apresoline] 50 mg PO TID@0700,1300,209910/28/19 [History] polyethylene glycoL 3350 [Miralax] 17 gm PO DAILY PRN 10/28/19 [History] Ertapenem [INVanz] 1 gm IVPB Q24H #14 bag 10/31/19 [Rx] Gabapentin [Neurontin] 300 mg PO BID@699,2099 #6 cap 11/01/19 [Rx] HYDROcodone/APAP 5-325MG [[place] 5-325] 1 tab PO QID PRN #12 tab 11/01/19 [Rx] Lidocaine 5% Patch [Lidoderm 5% Patch] 1 patch TOPICAL DAILY@699 #3 patch 11/01/19 [Rx] Follow up Appointment(s)/Referral(s): Romaine Marte DO [STAFF PHYSICIAN] - 11/15/19 3:00 pm Darian Ambrosio MD [Primary Care Provider] - 1-2 days (ECF) Jorge Kay MD [STAFF PHYSICIAN] - 2 Weeks Activity/Diet/Wound Care/Special Instructions: cbc/bmp - 7 days Daily bandage changes until recheck with Dr Solorzano. Bandage change instructions apply santyl, 4x4 gauze cover and then wrap with curlex.
--- NOTE | 2019-11-01 15:00 | PN ---
PROGRESS NOTE DATE OF SERVICE: 11/01/2019 REASON FOR FOLLOWUP: Right lower extremity wound infection. INTERVAL HISTORY: The patient is currently afebrile. The patient is breathing comfortably. The patient denies having any chest pain or shortness of breath or cough. No abdominal pain or pain to the right leg wound area. PHYSICAL EXAMINATION: Blood pressure 135/79 with a pulse of 83, temperature is 97.8, she is 98% on room air. General description is an elderly female, lying in bed in no distress. RESPIRATORY SYSTEM: Unlabored breathing, clear to auscultation anteriorly. HEART: S1, S2. Regular rate and rhythm. ABDOMEN: Soft, no tenderness. Right leg is currently dressed up. No obvious drainage on the dressing. LABS: No new lab has been obtained today. DIAGNOSTIC IMPRESSION AND PLAN: Patient with right leg wound with secondary cellulitis, status post debridement. Culture with enterococcus and ESBL. Plan is for Invanz 1 g daily for another 10-12 days. Local wound care with Aquacel dressing, follow up in the [facility]. MMODL / IJN: [id number] /
[2019-11-01 15:55] VITALS: BP 129/75; PULSE 74; RESP 16; TEMP 98.3
--- NOTE | 2019-11-01 16:38 | P.PN ---
Subjective Progress Note Date: 11/01/19 Patient was seen and examined at the bedside. Patient had PICC line placement yesterday patient is scheduled to be discharged to extended care facility with IV antibiotics. Patient denies any pain to the right lower extremity. Denies any fevers or chills. Objective - Vital Signs Vital signs: Vital Signs Temp 98.3 F 11/01/19 15:00 Pulse 74 11/01/19 15:00 Resp 16 11/01/19 15:00 BP 129/75 11/01/19 15:00 Pulse Ox 97 11/01/19 15:00 Intake & Output 10/31/19 11/01/19 11/01/19 18:59 06:59 18:59 Intake Total 525 200 Output Total 700 500 Balance -175 -300 Intake: Intake, IV Titration 525 Amount Sodium Chloride 0.9% 1, 525 000 ml @ 75 mls/hr IV . [id number] JAYLIN Rx#:[id number] Oral 200 Output: Urine 700 500 Other: Voiding Method Diaper Diaper Incontinent Incontinent # Voids 1 # Bowel Movements 1 - Exam General appearance: The patient is alert, oriented, in no acute distress. HET: Head is normocephalic and atraumatic. Heart: S1 S2. Regular rate and rhythm. Lungs: No crackles or wheezes are heard. Extremities: Normal skin color and turgor. Right lower extremity with dressing clean dry and intact. Neurological: No focal deficits. Strength and sensation are grossly intact. - Labs CBC & Chem 7: 10/31/19 07:19 10/31/19 07:19 Labs: Microbiology - Last 24 Hours (Table) 10/28/19 12:48 Blood Culture - Preliminary Blood No Growth after 96 hours Assessment and Plan Assessment: #1 right lower leg nonhealing ulcer with failed outpatient therapy #2 peripheral arterial disease bilateral lower extremities #3 renal insufficiency #4 anemia #5 hypertension Plan: Patient is cleared for discharge by vascular surgery. Continue with local wound care at [facility] with medihoney and daily dressing changes. Patient to follow-up with Dr. Marte 1-2 weeks. Continue IV antibiotics per infectious disease. The above dictated assessment and findings were discussed with Dr. Marte. The impression and plan of care have been directed as dictated.
[2019-11-01] MEDS: LACTOBACILLUS ACIDOPH & BULGAR 1 EACH PACKET PO SCH (17:21)
[2019-11-01] MEDS: SODIUM CHLORIDE 0.9% 1,000 ML IV SCH (17:21)
[2019-11-01] MEDS: CITALOPRAM HYDROBROMIDE 20 MG TAB PO SCH (17:24)
--- NOTE | 2019-11-02 09:42 | P.ARTDOP ---
Arterial Doppler LOWER EXTREMITY ARTERIAL DOPPLER: DATE OF SERVICE: 10/29/2019: Reason for study: Ulcer right lower leg. Doppler waveforms: Atypical bilaterally throughout. Pulse volume recording: []. Pressure gradients: Mild decrease in ankle pressures. Ankle-brachial indices: 0.92 on the right and 0.84 on the left. Toe brachial indices: 0.38 on the right, 0.67 on the left Impression: Mild bilateral iliofemoral disease. Clinical correlation per Dr. Marte..
--- NOTE | 2019-11-02 12:59 | CDI ---
Documentation Clarification Form Date: 11/02/19 From: Lizbet Killian Phone: If you have a question about this query, please contact Rosario Medina [employer] at [phone] between 8am and 5pm. Admit Date: 10/28/19 Discharge Date:11/01/19 Patient Name: Sandrine Aguirre Visit Number: [id number] ATTENTION: The Clinical Documentation Specialists (CDI) and [facility] Coding Staff appreciate your assistance in clarifying documentation. Please respond to the clarification below the line at the bottom and electronically sign. The CDI & [facility] Coding staff will review the response and follow-up if needed. Please note: Queries are made part of the Legal Health Record. If you have any questions, please contact the author of this message via ITS. Dear Dr. Reis Nonhealing right lower extremity wound is documented in the H&P, infectious disease consult note, Dr. Marte's consult note, dishcarge summary and progress notes. Patient history/risk factors: PVD, Cellulitis, wound of right lower extremity Clinical Indicators: wound with surrounding swelling and redness Labs: Culture positive for enterococcus and ESBL e.coli Wound assessment: dull aching pain at times sharp, surrounding swelling and redness Treatment: Medication: Medihoney, IV Unasyn Consults: Vascular surgery: right lower leg nonhealing ulcer with failed outpatient therapy. 2. peripheral arterial disease, bilateral lower extremities In your professional opinion, can the etiology and severity of the wound be further specified as one of the following? Etiology: Non-pressure chronic ulcer due to arterial insufficiency Non-pressure chronic ulcer due to venous insufficiency Non-pressure chronic ulcer due to trauma Other, Please specify Unable to determine Severity: Limited to breakdown of skin With fat layer exposed With necrosis of muscle With necrosis of bone Other, Please specify Unable to determine Right lower extremity nonhealing ulcer likely pressure ulcer, POA MTDD
--- NOTE | 2019-11-02 13:34 | CDI ---
Documentation Clarification Form Date: 11/02/19 From: Lizbet Killian Phone: If you have a question about this query, please contact Rosario Medina, [employer] at [phone] between 8am and 5pm. Admit Date: 10/28/19 Discharge Date:11/01/19 Patient Name: Sandrine Aguirre Visit Number: [id number] ATTENTION: The Clinical Documentation Specialists (CDI) and [facility] Coding Staff appreciate your assistance in clarifying documentation. Please respond to the clarification below the line at the bottom and electronically sign. The CDI & [facility] Coding staff will review the response and follow-up if needed. Please note: Queries are made part of the Legal Health Record. If you have any questions, please contact the author of this message via ITS. Dear Dr. Reis X-ray is suspicious for possible osteomyelitis has been documented in Dr. Kay's consult note and Dr. Kilpatrick's 10/28 & 10/29 progress notes. History/Risk Factors: Nonhealing wound to the right lower extremity, PVD, cellulits of right lower extremity Clinical Indicators: Abnormal findings on the tib/fib x-ray Labs: ESR 28 X-Ray Results: Tib/fib: Posterolateral mid leg wound. Difficult to exclude very subtle early cortical changes along the posterior margin of the mid fibular shaft. Correlate for any clinically suspected early osteomyelitis. Treatment: IV Unasyn In your professional opinion, please specify the following: Osteomyelitis Ruled Out Osteomyelitis Ruled In Acuity: Acute Chronic Subacute Other (please specify) Unable to Determine Osteomyelitis ruled out MTDD
--- NOTE | 2019-11-02 13:38 | CDI ---
Documentation Clarification Form Date: 11/02/19 From: Lizbet Killian Phone: If you have a question about this query, please contact Rosario Medina Mailer at [phone] between 8am and 5pm. Admit Date: 10/28/19 Discharge Date:11/01/19 Patient Name: Sandrine Aguirre Visit Number: [id number] ATTENTION: The Clinical Documentation Specialists (CDI) and [facility] Coding Staff appreciate your assistance in clarifying documentation. Please respond to the clarification below the line at the bottom and electronically sign. The CDI & [facility] Coding staff will review the response and follow-up if needed. Please note: Queries are made part of the Legal Health Record. If you have any questions, please contact the author of this message via ITS. Dear Dr. Marte Per your progress note on 10/30, a debridement was performed at the bedside on the right lower extremity wound History/Risk Factors: Right lower extremity wound, cellulitis, PVD Clinical Indicators: Redness, swelling and pain Treatment: Debridement with a 15 blade scalpel down to bleeding subcutaneous tissues. In order to capture the severity of condition and code the appropriate procedure; could you please document the following: Excisional debridement (the removal of necrotic, devitalized tissue or slough by means of cutting away of tissue) Non-excisional debridement (the removal of necrotic, devitalized tissue or slough by means of flushing, brushing, or washing. (Irrigation) Other; please specify Unable to determine excisional debridement MTDD
== END 2019-11-01 18:17 | DRG 571 ==
LOC: EC 11:59 → 6PED 13:34 → 4SSUR 17:41
PROVIDERS: ADMIT Hospitalist; ATTEND Hospitalist
PROC: 0JBN0ZZ Excision of Right Lower Leg Subcutaneous Tissue and Fascia, Open Approach (ICD-10-PCS; principal; 2019-10-31 13:30)
DX: L89.893 Pressure ulcer of other site, stage 3 (principal); E44.1 Mild protein-calorie malnutrition; E87.1 Hypo-osmolality and hyponatremia; L03.115 Cellulitis of right lower limb; N17.9 Acute kidney failure, unspecified; Z16.12 Extended spectrum beta lactamase (ESBL) resistance; D63.8 Anemia in other chronic diseases classified elsewhere; B96.20 Unspecified Escherichia coli [E. coli] as the cause of diseases classified elsewhere; B95.2 Enterococcus as the cause of diseases classified elsewhere; E78.5 Hyperlipidemia, unspecified; F17.210 Nicotine dependence, cigarettes, uncomplicated; F40.240 Claustrophobia; I10 Essential (primary) hypertension; I25.10 Atherosclerotic heart disease of native coronary artery without angina pectoris; R32 Unspecified urinary incontinence; I73.9 Peripheral vascular disease, unspecified; Z11.59 Encounter for screening for other viral diseases; Z68.27 Body mass index [BMI] 27.0-27.9, adult; Z79.02 Long term (current) use of antithrombotics/antiplatelets; Z79.82 Long term (current) use of aspirin; Z79.899 Other long term (current) drug therapy; Z95.5 Presence of coronary angioplasty implant and graft; Z90.710 Acquired absence of both cervix and uterus; Z90.49 Acquired absence of other specified parts of digestive tract; Z82.3 Family history of stroke; Z82.49 Family history of ischemic heart disease and other diseases of the circulatory system
CPT/HCPCS: 36410; 36415; 70450; 76937; 80048; 80053; 82140; 83605; 85025; 85652; 86140; 87040; 87070; 87077; 87186; 87205; 87635; 93922; 99285

== ENCOUNTER 2019-11-20 16:28 | Inpatient (IN) | payer MEDICARE, BC ==
--- NOTE | 2019-11-20 17:15 | ED ---
General Adult HPI - General Chief complaint: GI Bleed Stated complaint: GI hemorrhage Time Seen by Provider: 11/20/19 16:36 Source: patient, EMS, RN notes reviewed, old records reviewed Mode of arrival: EMS Limitations: no limitations - History of Present Illness Initial comments: Patient is a pleasant 74-year-old female presenting to the emergency Department as a transfer from [facility] with concern for possible SMA syndrome. Patient reports that she had vomited at least 2 times since last night coffee- ground emesis. Patient states there may have been some mild abdominal discomfort however was never severe. Patient was transferred for surgical evaluation. Patient states no discomfort at this time she feels fine. - Related Data Home Medications Medication Instructions Recorded Confirmed Cholecalciferol [Vitamin D3 (25 2,000 unit PO DAILY@69906/29/18 11/20/19 Mcg = 1000 Iu)] NIFEdipine [Procardia XL] 90 mg PO DAILY@69906/29/18 11/20/19 Atorvastatin [Lipitor] 40 mg PO HS@2100 07/05/18 11/20/19 Acetaminophen [Tylenol] 650 mg PO Q4H PRN 10/28/19 11/20/19 Albuterol Sulfate [Ventolin HFA] 2 puff INHALATION RT-Q6H PRN 10/28/19 11/20/19 Allopurinol [Zyloprim] 100 mg PO DAILY@69910/28/19 11/20/19 Aspirin EC [Ecotrin Low Dose] 81 mg PO DAILY@69910/28/19 11/20/19 Carvedilol [Coreg] 12.5 mg PO BID@0700,1700 10/28/19 11/20/19 Citalopram Hydrobromide [CeleXA] 20 mg PO DAILY@169910/28/19 11/20/19 Clopidogrel Bisulfate [Plavix] 75 mg PO DAILY@69910/28/19 11/20/19 Famotidine [Pepcid] 20 mg PO HS@209910/28/19 11/20/19 L.acidoph,Paracasei, B.lactis 2 cap PO DAILY@1200 10/28/19 11/20/19 [Probiotic] Potassium Chloride ER [K-Dur 20] 20 meq PO DAILY@69910/28/19 11/20/19 Sennosides [Senna] 8.6 mg PO HS@2100 PRN 10/28/19 11/20/19 Sennosides [Senna] 17.2 mg PO BID@1200,1700 PRN 10/28/19 11/20/19 Vitamin B Complex/Folic Acid 0.4 mg PO DAILY@0700 10/28/19 11/20/19 [Vitamin B Complex Tablet] hydrALAZINE HCL [Apresoline] 25 mg PO TID@0700,1300,2100 10/28/19 11/20/19 polyethylene glycoL 3350 [Miralax] 17 gm PO DAILY PRN 10/28/19 11/20/19 Furosemide [Lasix] 20 mg PO DAILY@0700 11/20/19 11/20/19 Previous Rx's Medication Instructions Recorded Gabapentin [Neurontin] 300 mg PO BID@0700,2100 #6 cap 11/01/19 HYDROcodone/APAP 5-325MG [[place] 1 tab PO QID PRN #12 tab 11/01/19 5-325] Allergies Allergy/AdvReac Type Severity Reaction Status Date / Time No Known Allergies Allergy Verified 10/30/19 22:57 Review of Systems ROS Statement: Those systems with pertinent positive or pertinent negative responses have been documented in the HPI. ROS Other: All systems not noted in ROS Statement are negative. Constitutional: Denies: fever Eyes: Denies: eye pain ENT: Denies: ear pain Respiratory: Denies: cough Cardiovascular: Denies: chest pain Endocrine: Denies: fatigue Gastrointestinal: Reports: as per HPI, vomiting Genitourinary: Denies: dysuria Musculoskeletal: Denies: back pain Skin: Denies: rash Past Medical History Past Medical History: Hyperlipidemia, Hypertension, Vascular Disorder Additional Past Medical History / Comment(s): dizziness,SOB w/activity,PVD, AAA History of Any Multi-Drug Resistant Organisms: ESBL Date of last positivie culture/infection: 10/28/19 MDRO Source:: ESBL URINE Past Surgical History: Section, Cholecystectomy, Hysterectomy Additional Past Surgical History / Comment(s): vascular bypass left leg Past Anesthesia/Blood Transfusion Reactions: No Reported Reaction Additional Past Anesthesia/Blood Transfusion Reaction / Comment(s): claustrophobia Past Psychological History: No Psychological Hx Reported Smoking Status: Former smoker Past Alcohol Use History: None Reported Past Drug Use History: None Reported - Past Family History Mother Family Medical History: CVA/TIA Additional Family Medical History / Comment(s): fluid retention at age 90 with CVA Father Family Medical History: Myocardial Infarction ([place]) Additional Family Medical History / Comment(s): [place] @ age 84 General Exam Limitations: no limitations General appearance: alert, in no apparent distress Head exam: Present: normocephalic Eye exam: Present: normal appearance Neck exam: Present: normal inspection Respiratory exam: Present: normal lung sounds bilaterally Cardiovascular Exam: Present: regular rate, normal rhythm Expanded Peripheral pulses: 2+: Dorsalis Pedis (R), Dorsalis Pedis (L) GI/Abdominal exam: Present: soft. Absent: distended, tenderness, guarding, rebound, rigid, pulsatile mass Extremities exam: Present: normal inspection Neurological exam: Present: alert Psychiatric exam: Present: normal affect, normal mood Skin exam: Present: other (Right lower leg wound) Course Vital Signs 11/20/19 16:30 Temperature 100.2 F H Pulse Rate 90 Respiratory 18 Rate Blood Pressure 167/89 O2 Sat by Pulse 95 Oximetry - Reevaluation(s) Reevaluation #1: 11/20/19 17:25 Case was discussed with Dr. Denilson gan, specifically regarding multiple CT findings including surrounding thrombus, and he will consult on this patient. He would also like surgical and GI consult. He agrees with medicine admission and IV Protonix. 11/20/19 17:26 Physician Group Has Been Paged 11/20/19 18:15 Case was discussed with Dr. Dickens, who will admit EKG Findings - EKG Comments: EKG Findings:: Sinus rhythm at 67 with sinus arrhythmia. [place] 128. QRS 104. QT 446. QTc 471. Normal axis. Normal QRS. No acute ST change. Disposition Clinical Impression: Upper GI hemorrhage, Abdominal aortic aneurysm (AAA) Disposition: ADMITTED IP TO THIS HOSP Condition: Serious Is patient prescribed a controlled substance at d/c from ED?: No Referrals: Darian Ambrosio MD [Primary Care Provider] - 1-2 days Decision Time: 17:26
[2019-11-20] MEDS ORDERED: NALOXONE 0.4 MG/ML 1 ML VIAL IV PRN (17:27)
[2019-11-20] MEDS ORDERED: cefTRIAXone IN SWFI 1,000 MG/10 ML SYRINGE IVP STA (17:29)
[2019-11-20] MEDS ORDERED: PANTOPRAZOLE 40 MG/10 ML VIAL IV SCH (17:30)
[2019-11-20] MEDS: SODIUM CHLORIDE 0.9% 1,000 ML IV SCH (18:29)
[2019-11-20 18:55] LABS: Bacteria,Urine Rare /hpf; Budding Yeast,Urine Occasional /hpf; Mucus,Urine Rare /hpf; RBC,Urine 8 /hpf (0-5); Squamous Epithelial Cell,Urine 2 /hpf (0-4); WBC,Urine 71 /hpf (0-5)
[2019-11-20 18:56] LABS: Appearance,Urine Clear (Clear); Color,Urine Yellow; Specific Gravity,Urine 1.005 (1.001-1.035)
[2019-11-20 18:57] LABS: Bilirubin,Urine Negative (Negative); Blood,Urine Negative (Negative); Glucose,Urine (UA) Negative (Negative); Ketones,Urine Negative (Negative); Leukocyte Esterase,Urine Large (Negative); Nitrite,Urine Negative (Negative); Protein,Urine Negative (Negative); Urobilinogen,Urine <2.0 mg/dL (<2.0)
--- NOTE | 2019-11-20 21:11 | P.HPIM ---
History of Present Illness H&P Date: 11/20/19 Patient is a 74-year-old female with a PMH of coronary artery disease, hypertension, hyperlipidemia, peripheral arterial disease, and chronic normocytic anemia who presented to the ED as a transfer from [facility]. The patient reports that she was in her usual state of health until about 11 AM this morning when she suddenly had an episode of coffee-ground emesis. She reported no prodromal symptoms and never experienced any abdominal pain. She then had another episode of coffee-ground emesis a few minutes later followed by 2 black bowel movements. Her activated EMS and the patient was subsequently brought to [facility]. She underwent an extensive evaluation there with a CT abdomen and pelvis with contrast showing a dilated duodenum of 4.2 cm narrowing as it passed between the SMA and a suprarenal abdominal aortic aneurysm. 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 Laboratory evaluation revealed WBC count of 19.2, hemoglobin 12.7, platelets 411, sodium 137, potassium 3.7, chloride 95, CO2 30, BUN 20, creatinine 1.0, and glucose 272. Lipase was 419 with troponin less than 0.05. At time of interview, the patient reported feeling well and denied any active complaints. She was recently discharged from subacute rehab on Thursday. She denied abdominal pain, nausea, vomiting, fever, chills, chest pain, or shortness of breath. EKG in the emergency room at [place] revealed sinus rhythm at 67 bpm with sinus arrhythmia as reviewed by me with lactic acid of 2.1 . Review of Systems Pertinent positives and negatives as discussed in HPI, a complete review of systems was performed and all other systems are negative. Past Medical History Past Medical History: Hyperlipidemia, Hypertension, Vascular Disorder Additional Past Medical History / Comment(s): dizziness,SOB w/activity,PVD, AAA History of Any Multi-Drug Resistant Organisms: ESBL Date of last positivie culture/infection: 10/28/19 MDRO Source:: ESBL URINE Past Surgical History: Section, Cholecystectomy, Hysterectomy Additional Past Surgical History / Comment(s): vascular bypass left leg Past Anesthesia/Blood Transfusion Reactions: No Reported Reaction Additional Past Anesthesia/Blood Transfusion Reaction / Comment(s): cla ustrophobia Past Psychological History: No Psychological Hx Reported Smoking Status: Former smoker Past Alcohol Use History: None Reported Past Drug Use History: None Reported - Past Family History Mother Family Medical History: CVA/TIA Additional Family Medical History / Comment(s): fluid retention at age 90 with CVA Father Family Medical History: Myocardial Infarction ([place]) Additional Family Medical History / Comment(s): [place] @ age 84 Medications and Allergies Home Medications Medication Instructions Recorded Confirmed Type Cholecalciferol [Vitamin D3 (25 2,000 unit PO DAILY@69906/29/18 11/20/19 History Mcg = 1000 Iu)] NIFEdipine [Procardia XL] 90 mg PO DAILY@69906/29/18 11/20/19 History Atorvastatin [Lipitor] 40 mg PO HS@209907/05/18 11/20/19 History Acetaminophen [Tylenol] 650 mg PO Q4H PRN 10/28/19 11/20/19 History Albuterol Sulfate [Ventolin HFA] 2 puff INHALATION RT-Q6H PRN 10/28/19 11/20/19 History Allopurinol [Zyloprim] 100 mg PO DAILY@69910/28/19 11/20/19 History Aspirin EC [Ecotrin Low Dose] 81 mg PO DAILY@69910/28/19 11/20/19 History Carvedilol [Coreg] 12.5 mg PO BID@0700,169910/28/19 11/20/19 History Citalopram Hydrobromide [CeleXA] 20 mg PO DAILY@169910/28/19 11/20/19 History Clopidogrel Bisulfate [Plavix] 75 mg PO DAILY@69910/28/19 11/20/19 History Famotidine [Pepcid] 20 mg PO HS@209910/28/19 11/20/19 History L.acidoph,Paracasei, B.lactis 2 cap PO DAILY@119910/28/19 11/20/19 History [Probiotic] Potassium Chloride ER [K-Dur 20] 20 meq PO DAILY@69910/28/19 11/20/19 History Sennosides [Senna] 8.6 mg PO HS@2099 PRN 10/28/19 11/20/19 History Sennosides [Senna] 17.2 mg PO BID@1200,1700 PRN 10/28/19 11/20/19 History Vitamin B Complex/Folic Acid 0.4 mg PO DAILY@0700 10/28/19 11/20/19 History [Vitamin B Complex Tablet] hydrALAZINE HCL [Apresoline] 25 mg PO TID@0700,1300,2100 10/28/19 11/20/19 History polyethylene glycoL 3350 [Miralax] 17 gm PO DAILY PRN 10/28/19 11/20/19 History Gabapentin [Neurontin] 300 mg PO BID@0700,2100 #6 cap 11/01/19 11/20/19 Rx HYDROcodone/APAP 5-325MG [[place] 1 tab PO QID PRN #12 tab 11/01/19 11/20/19 Rx 5-325] Furosemide [Lasix] 20 mg PO DAILY@0700 11/20/19 11/20/19 History Allergies Allergy/AdvReac Type Severity Reaction Status Date / Time No Known Allergies Allergy Verified 10/30/19 22:57 Physical Exam Vitals: Vital Signs Temp Pulse Pulse Resp BP BP Pulse Ox 11/20/19 19:21 98.4 F 79 16 151/87 95 11/20/19 18:35 100 F H 67 16 168/83 96 11/20/19 16:30 100.2 F H 90 18 167/89 95 Intake and Output 11/20/19 11/20/19 11/20/19 06:59 14:59 22:59 Other: Weight 77.564 kg General: non toxic, no distress, at stated age, normal weight Derm: Bilateral upper extremity scattered ecchymoses with thin skin, warm, dry Head: atraumatic, normocephalic, symmetric Eyes: EOMI, no lid lag, anicteric sclera, pupils equal round reactive to light ENT: Nose and ears atraumatic, no thrush, no pharyngeal erythema Neck: No thyromegaly, no cervical lymphadenopathy, trachea midline, supple Mouth: no lip lesion, mucus membranes moist Cardiovascular: S1S2 irregular, no murmur, scant bilateral dorsalis pedis pulses, no edema, capillary refill less than 2 seconds Lungs: CTA bilateral, no rhonchi, no rales , no accessory muscle use Abdominal: soft, nontender to palpation, no guarding, no appreciable organomegaly, normal bowel sounds Ext: no gross muscle atrophy, muscle strength 4 out of 5 in all 4 extremities grossly, no contractures, right calf posterior 2 in x 2 in ulcer with minimal erythema or exudate Neuro: CN II-XI grossly intact, light touch intact all 4 extremities, finger to nose within normal limits Psych: Alert, oriented, appropriate affect Results Labs: Abnormal Lab Results - Last 24 Hours (Table) 11/20/19 11/20/19 Range/Units 17:55 17:55 Plasma Lactic Acid Isidro 2.1 H* (0.7-2.0) mmol/L Urine pH 9.0 H (5.0-8.0) Urine RBC 8 H (0-5) /hpf Urine WBC 71 H (0-5) /hpf Urine Bacteria Rare H (None) /hpf Urine Mucus Rare H (None) /hpf Urine Yeast (Budding) Occasional H (None) /hpf Assessment and Plan Plan: Coffee-ground emesis with melena, likely unrelated to findings consistent with SMA syndrome on CT scan -Monitor CBC every 6 hourly -GI consult -IV Protonix every 12 hourly -Nothing by mouth for now Abdominal aortic aneurysm and thrombus with femoral artery aneurysm along with bilateral iliac artery occlusions with a bifemoral bypass -Vascular surgery consulted -Patient has long-standing history of peripheral arterial disease Lactic acidosis -Continue with IV fluids -Monitor to resolution Abnormal UA -Patient denying urinary complaints -Likely colonization -Hold off on antibiotics at this time Leukocytosis, no signs of active infection at this time -Likely secondary to acute stress Hyperglycemia -Check A1c -No history of diabetes mellitus Right lower extremity ulcer -Wound care DVT prophylaxis -IPCDs The patient is admitted with an anticipated greater than 2 midnight stay for evaluation of acute GI bleed CODE STATUS: Full Code Discussed with: Patient Anticipated discharge date: 3-[address]: Home A total of 40 minutes was spent on the care of this complex patient more than 50% of the time was spent in counseling and care coordination.
[2019-11-21] MEDS: SODIUM CHLORIDE 0.9% 1,000 ML IV SCH (02:38)
[2019-11-21] MEDS: allopurinoL 100 MG TAB PO SCH (06:37)
[2019-11-21] MEDS: GABAPENTIN 300 MG CAP PO SCH ×2 (06:37→20:53)
[2019-11-21] MEDS: POTASSIUM CHLORIDE ER 20 MEQ TAB.ER PO SCH (06:38)
[2019-11-21] MEDS: carvediloL 12.5 MG TAB PO SCH ×2 (06:38→16:21)
[2019-11-21 06:44] LABS: Anisocytosis Slight; Basophils % (A) 0 %; Eosinophils # (A) 0.1 k/uL (0-0.7); Eosinophils % (A) 0 %; HCT 30.9 % (34.0-46.0); Lymphocytes # (A) 1.7 k/uL (1.0-4.8); Lymphocytes % (A) 11 %; MCH 31.2 pg (25.0-35.0); MCHC 32.4 g/dL (31.0-37.0); MCV 96.4 fL (80.0-100.0); Mean Platelet Volume 8.2; Monocytes % (A) 6 %; Neutrophils # (A) 12.6 k/uL (1.3-7.7); Neutrophils % (A) 81 %; Platelet Count 283 k/uL (150-450); RBC 3.21 m/uL (3.80-5.40); RDW 16.1 % (11.5-15.5); WBC 15.5 k/uL (3.8-10.6)
[2019-11-21 06:50] LABS: Prothrombin Time 10.6 sec (9.0-12.0)
[2019-11-21 06:56] LABS: ALT 10 U/L (4-34); AST 16 U/L (14-36); African American GFR (CKD) >90 (>60 ml/min/1.73 sqM); Albumin 2.5 g/dL (3.5-5.0); Alkaline Phosphatase 61 U/L (38-126); Anion Gap 5 mmol/L; Blood Urea Nitrogen 14 mg/dL (7-17); Calcium 7.8 mg/dL (8.4-10.2); Carbon Dioxide 32 mmol/L (22-30); Chloride 99 mmol/L (98-107); Glucose 90 mg/dL (74-99); Non-African American GFR(CKD) 81 (>60 ml/min/1.73 sqM); Sodium 136 mmol/L (137-145); Total Bilirubin 0.7 mg/dL (0.2-1.3); Total Protein 5.4 g/dL (6.3-8.2)
[2019-11-21] MEDS ORDERED: Potassium Replacement Protocol 1 EACH MISC MISCELLANE PRN (07:30)
[2019-11-21] MEDS: PANTOPRAZOLE 40 MG/10 ML VIAL IVP SCH ×2 (08:14→20:53)
[2019-11-21 10:39] VITALS: BMI 27.6
--- NOTE | 2019-11-21 12:20 | P.CONS ---
History of Present Illness - Reason for Consult Consult date: 11/21/19 wound care - History of Present Illness This is a 74-year-old pleasant female who is being seen by the wound care center on for nonhealing ulceration to the right lateral lower extremity. Patient states that the ulceration started approximately 2 weeks ago. She is not sure how it happened just appeared. Patient denies any trauma or injury to the site. Patient was at [facility] [place] and was discharged home subsequently she then returned to the hospital. Patient states she has no pain or drainage from the site. She has a nurse will come in to do changes and she is unsure of the products that have been used. Past medical history significant for hyperlipidemia, hypertension, peripheral vascular disease and a AAA. Patient advised vascular bypass to the left leg patient has not been smoki ng for one week. Review of Systems Review Of Systems: Constitutional: No fever, no chills, no night sweats. No weight change. No weakness, fatigue or lethargy. No daytime sleepiness. Integumentary:reports wounds, no lesions. No rash or pruritus. No unusual brui sing. No change in hair or nails. Past Medical History Past Medical History: Hyperlipidemia, Hypertension, Vascular Disorder Additional Past Medical History / Comment(s): dizziness,SOB w/activity,PVD, AAA History of Any Multi-Drug Resistant Organisms: ESBL Year Discovered:: 10/28/19 MDRO Source:: ESBL URINE Past Surgical History: Section, Cholecystectomy, Hysterectomy Additional Past Surgical History / Comment(s): vascular bypass left leg Past Anesthesia/Blood Transfusion Reactions: No Reported Reaction Additional Past Anesthesia/Blood Transfusion Reaction / Comm: claustrophobia Past Psychological History: No Psychological Hx Reported Smoking Status: Former smoker Past Alcohol Use History: None Reported Past Drug Use History: None Reported - Past Family History Mother Family Medical History: CVA/TIA Additional Family Medical History / Comment(s): fluid retention at age 90 with CVA Father Family Medical History: Myocardial Infarction ([place]) Additional Family Medical History / Comment(s): [place] @ age 84 Medications and Allergies Home Medications Medication Instructions Recorded Confirmed Type Cholecalciferol [Vitamin D3 (25 2,000 unit PO DAILY@0700 06/29/18 11/20/19 History Mcg = 1000 Iu)] NIFEdipine [Procardia XL] 90 mg PO DAILY@0700 06/29/1816/20 History Atorvastatin [Lipitor] 40 mg PO HS@209907/05/18 11/20/19 History Acetaminophen [Tylenol] 650 mg PO Q4H PRN 10/28/19 11/20/19 History Albuterol Sulfate [Ventolin HFA] 2 puff INHALATION RT-Q6H PRN 10/28/19 11/20/19 History Allopurinol [Zyloprim] 100 mg PO DAILY@69910/28/19 11/20/19 History Aspirin EC [Ecotrin Low Dose] 81 mg PO DAILY@69910/28/19 11/20/19 History Carvedilol [Coreg] 12.5 mg PO BID@0700,0 10/28/19 11/20/19 History Citalopram Hydrobromide [CeleXA] 20 mg PO DAILY@169910/28/19 11/20/19 History Clopidogrel Bisulfate [Plavix] 75 mg PO DAILY@69910/28/19 11/20/19 History Famotidine [Pepcid] 20 mg PO HS@209910/28/19 11/20/19 History L.acidoph,Paracasei, B.lactis 2 cap PO DAILY@119910/28/19 11/20/19 History [Probiotic] Potassium Chloride ER [K-Dur 20] 20 meq PO DAILY@69910/28/19 11/20/19 History Sennosides [Senna] 8.6 mg PO HS@2099 PR10/28/19 11/20/19 History Sennosides [Senna] 17.2 mg PO BID@1200,1700 PRN 10/28/19 11/20/19 History Vitamin B Complex/Folic Acid 0.4 mg PO DAILY@69910/28/19 11/20/19 History [Vitamin B Complex Tablet] hydrALAZINE HCL [Apresoline] 25 mg PO TID@0700,1300,209910/28/19 11/20/19 History polyethylene glycoL 3350 [Miralax] 17 gm PO DAILY PRN 10/28/19 11/20/19 History Gabapentin [Neurontin] 300 mg PO BID@07,2099 #6 cap 11/01/19 11/20/19 Rx HYDROcodone/APAP 5-325MG [[place] 1 tab PO QID PRN #12 tab 11/01/19 11/20/19 Rx 5-325] Furosemide [Lasix] 20 mg PO DAILY@0700 11/20/19 11/20/19 History Allergies Allergy/AdvReac Type Severity Reaction Status Date / Time No Known Allergies Allergy Verified 10/30/19 22:57 Physical Exam Vitals: Vital Signs Temp Pulse Pulse Resp BP BP Pulse Ox 11/21/19 08:00 99.1 F 89 16 136/80 96 11/21/19 03:31 98.3 F 74 17 181/75 100 11/21/19 00:00 99.6 F 72 17 135/76 95 11/20/19 20:00 98.2 F 59 L 17 145/63 97 11/20/19 19:21 98.4 F 79 16 151/87 95 11/20/19 18:35 100 F H 67 16 168/83 96 11/20/19 16:30 100.2 F H 90 18 167/89 95 Intake and Output 11/20/19 11/21/19 11/21/19 22:59 06:59 14:59 Other: # Voids 2 1 Weight 77.564 kg 77.564 kg Physical exam: General Appearance: Alert, cooperative, no distress, appears stated age. Skin: Nonhealing ulceration to right lateral lower extremity with muscle e xposure no necrosis, tunneling from 9 PM to midnight at approximately 0.5 cm, ulceration measures approximately 5 x 4 x 0.1 cm granulation seen throughout the ulceration with moderate slough noted, wound edges are not attached to the wound bed. Wound shows scarring and redness. No significant drainage noted. all other Skin color, texture, tugor normal, no rashes or lesions. Neurologic: Alert oriented x3 Results CBC & Chem 7: 11/21/19 05:51 11/21/19 05:51 Labs: Abnormal Lab Results - Last 24 Hours (Table) 11/20/19 11/20/19 11/20/19 Range/Units 17:55 17:55 20:54 WBC (3.8-10.6) k/uL RBC (3.80-5.40) m/uL Hgb (11.4-16.0) gm/dL Hct (34.0-46.0) % RDW (11.5-15.5) % Neutrophils # (1.3-7.7) k/uL Sodium (137-145) mmol/L Potassium (3.5-5.1) mmol/L Carbon Dioxide (22-30) mmol/L Plasma Lactic Acid Isidro 2.1 H* 2.3 H* (0.7-2.0) mmol/L Calcium (8.4-10.2) mg/dL Total Protein (6.3-8.2) g/dL Albumin (3.5-5.0) g/dL Urine pH 9.0 H (5.0-8.0) Urine RBC 8 H (0-5) /hpf Urine WBC 71 H (0-5) /hpf Urine Bacteria Rare H (None) /hpf Urine Mucus Rare H (None) /hpf Urine Yeast (Budding) Occasional H (None) /hpf 11/21/19 11/21/19 Range/Units 05:51 05:51 WBC 15.5 H (3.8-10.6) k/uL RBC 3.21 L (3.80-5.40) m/uL Hgb 10.0 L (11.4-16.0) gm/dL Hct 30.9 L (34.0-46.0) % RDW 16.1 H (11.5-15.5) % Neutrophils # 12.6 H (1.3-7.7) k/uL Sodium 136 L (137-145) mmol/L Potassium 3.0 L (3.5-5.1) mmol/L Carbon Dioxide 32 H (22-30) mmol/L Plasma Lactic Acid Isidro (0.7-2.0) mmol/L Calcium 7.8 L (8.4-10.2) mg/dL Total Protein 5.4 L (6.3-8.2) g/dL Albumin 2.5 L (3.5-5.0) g/dL Urine pH (5.0-8.0) Urine RBC (0-5) /hpf Urine WBC (0-5) /hpf Urine Bacteria (None) /hpf Urine Mucus (None) /hpf Urine Yeast (Budding) (None) /hpf Microbiology - Last 24 Hours (Table) 11/20/19 17:55 Urine Culture - Preliminary Urine,Voided Assessment and Plan (1) Ulcer of right lower extremity with fat layer exposed Current Visit: Yes Status: Acute Code(s): L97.912 - NON-PRS CHR ULC UNSP PRT OF R LOW LEG W FAT LAYER EXPOSED SNOMED Code(s): 41990438 Plan: Apply absorptive silver rope, saline moistened gauze, dry gauze, rolled gauze secured paper tape. Change Thursday. Patient may benefit from a negative pressure wound VAC. Discussed with patient the need for outpatient wound care patient was agreeable at this time. Patient should be seen in the wound care center within one week of discharge. Thank you kindly for the consultation any questions please contact the wound care center DNP note has been reviewed and discussed with Dr. Rivera and the impression and plan of care has been directed as dictated.
[2019-11-21] MEDS ORDERED: HYDROcodone/APAP 5-325MG 1 EACH TAB PO PRN (12:36)
[2019-11-21] MEDS: hydrALAZINE HCL 25 MG TAB PO SCH ×2 (12:55→20:54)
[2019-11-21 13:36] LABS: Hemoglobin A1C 4.9 % (4.0-6.0)
--- NOTE | 2019-11-21 15:38 | P.PN ---
Subjective Progress Note Date: 11/21/19 Patient was seen and examined. No acute events overnight. No bowel movement since admission. No hematemesis. She denies any nausea or vomiting. No chest pain, shortness breath or palpitations. No fever or chills. Objective - Vital Signs Vital signs: Vital Signs Temp 98.7 F 11/21/19 12:00 Pulse 80 11/21/19 12:00 Resp 16 11/21/19 12:00 BP 176/94 11/21/19 12:00 Pulse Ox 97 11/21/19 12:00 Intake & Output 11/20/19 11/21/19 11/21/19 18:59 06:59 18:59 Weight 77.564 kg 77.564 kg 77.564 kg Other: # Voids 2 1 - Exam General: [non toxic], [no distress], [appears at stated age] Derm: [warm], [dry] Head: [atraumatic], [normocephalic], [symmetric] Eyes: [EOMI], [no lid lag], [anicteric sclera] Mouth: [no lip lesion], [mucus membranes moist] Cardiovascular: [S1S2 irregular], [no murmur], [positive posterior tibial pulse bilateral], Lungs: [CTA bilateral], [no rhonchi, no rales] , [no accessory muscle use] Abdominal: [soft], [ nontender to palpation], [no guarding], [no appreciable organomegaly] Ext: [no gross muscle atrophy], [no edema], [no contractures], right calf ulcer dressing clean dry and intact Neuro: [no focal neuro deficits] Psych: [Alert], [oriented], [appropriate affect] - Labs CBC & Chem 7: 11/21/19 05:51 11/21/19 05:51 Labs: Abnormal Lab Results - Last 24 Hours (Table) 11/20/19 11/20/19 11/20/19 Range/Units 17:55 17:55 20:54 WBC (3.8-10.6) k/uL RBC (3.80-5.40) m/uL Hgb (11.4-16.0) gm/dL Hct (34.0-46.0) % RDW (11.5-15.5) % Neutrophils # (1.3-7.7) k/uL Sodium (137-145) mmol/L Potassium (3.5-5.1) mmol/L Carbon Dioxide (22-30) mmol/L Plasma Lactic Acid Isidro 2.1 H* 2.3 H* (0.7-2.0) mmol/L Calcium (8.4-10.2) mg/dL Total Protein (6.3-8.2) g/dL Albumin (3.5-5.0) g/dL Urine pH 9.0 H (5.0-8.0) Urine RBC 8 H (0-5) /hpf Urine WBC 71 H (0-5) /hpf Urine Bacteria Rare H (None) /hpf Urine Mucus Rare H (None) /hpf Urine Yeast (Budding) Occasional H (None) /hpf 11/21/19 11/21/19 Range/Units 05:51 05:51 WBC 15.5 H (3.8-10.6) k/uL RBC 3.21 L (3.80-5.40) m/uL Hgb 10.0 L (11.4-16.0) gm/dL Hct 30.9 L (34.0-46.0) % RDW 16.1 H (11.5-15.5) % Neutrophils # 12.6 H (1.3-7.7) k/uL Sodium 136 L (137-145) mmol/L Potassium 3.0 L (3.5-5.1) mmol/L Carbon Dioxide 32 H (22-30) mmol/L Plasma Lactic Acid Isidro (0.7-2.0) mmol/L Calcium 7.8 L (8.4-10.2) mg/dL Total Protein 5.4 L (6.3-8.2) g/dL Albumin 2.5 L (3.5-5.0) g/dL Urine pH (5.0-8.0) Urine RBC (0-5) /hpf Urine WBC (0-5) /hpf Urine Bacteria (None) /hpf Urine Mucus (None) /hpf Urine Yeast (Budding) (None) /hpf Microbiology - Last 24 Hours (Table) 11/20/19 17:55 Urine Culture - Preliminary Urine,Voided Assessment and Plan Assessment: Coffee-ground emesis with melena, likely unrelated to 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 Abnormal UA -Patient denying urinary complaints -Likely colonization -Hold off on antibiotics at this time Leukocytosis, no signs of active infection at this time -Likely secondary to acute stress Hyperglycemia -Check A1c -No history of diabetes mellitus Right lower extremity ulcer -Wound care DVT prophylaxis -IPCDs Patient admitted for GI bleed. Plans for endoscopy tomorrow. GI on board. Likely DC in 1-2 days.
--- NOTE | 2019-11-21 16:03 | P.GSCN ---
History of Present Illness Consult date: 11/21/19 Reason for Consult: AAA History of present illness: This is a 74-year-old female with a past medical history including coronary artery disease, hypertension, hyperlipidemia, peripheral arterial disease and chronic normocytic anemia who presented to our emergency department for as a transfer from [facility]. This patient is known to Dr. Marte who had seen her during her last hospitalization last month for nonhealing right lower extremity wound. Patient supposed to follow-up with Dr. Marte in the outpatient setting. The patient states yesterday she had 2-3 episodes of coffee-ground, dark emesis and 2 black stools. She went to [facility] where she underwent a CT of the abdomen and pelvis which showed small left pleural effusion, dilated duodenum 4.2 cm that narrows as it passes between the SMA and the aneurysm. This may represent a relative obstruction or ileus from the aneurysm. Suprarenal abdominal aortic aneurysm 4.9 x 4.2 cm. Surrounding thrombus. Aortic aneurysm extends into the infrarenal region where it measures a maximum of 3.7 x 3.6 cm. 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 we have been asked to see the patient regarding her abdominal aortic aneurysm that was found on the computed tomography scan. She denies any history of ulcers, states that she has some acid reflux at times. She is on aspirin and Plavix, WBC was 15.5, hemoglobin 10, hematocrit 30, platelets 283. The patient had recent ABIs on 11/01/2019 with the her right SALONI 0.92 and left SALONI 0.84, showing mild bilateral iliofemoral arterial disease. The patient denies any shortness of breath, chest pain, back pain, or any further black stools or nausea vomiting since hospitalization. She states the pain to her right lower extremity has improved, she has been seen in the wound clinic for her wound care of the right lower extremity. She denies any drainage, fever, or chills. Review of Systems A 14 point review of systems was completed all pertinent positives and negatives as stated in the HPI. Past Medical History Past Medical History: Hyperlipidemia, Hypertension, Vascular Disorder Additional Past Medical History / Comment(s): dizziness,SOB w/activity,PVD, AAA History of Any Multi-Drug Resistant Organisms: ESBL Year Discovered:: 10/28/19 MDRO Source:: ESBL URINE Past Surgical History: Section, Cholecystectomy, Hysterectomy Additional Past Surgical History / Comment(s): vascular bypass left leg Past Anesthesia/Blood Transfusion Reactions: No Reported Reaction Additional Past Anesthesia/Blood Transfusion Reaction / Comm: claustrophobia Past Psychological History: No Psychological Hx Reported Smoking Status: Former smoker Past Alcohol Use History: None Reported Past Drug Use History: None Reported - Past Family History Mother Family Medical History: CVA/TIA Additional Family Medical History / Comment(s): fluid retention at age 90 with CVA Father Family Medical History: Myocardial Infarction (CA) Additional Family Medical History / Comment(s): CA @ age 84 Medications and Allergies Home Medications Medication Instructions Recorded Confirmed Type Cholecalciferol [Vitamin D3 (25 2,000 unit PO DAILY@0700 06/29/18 11/20/19 History Mcg = 1000 Iu)] NIFEdipine [Procardia XL] 90 mg PO DAILY@0700 06/29/18 11/20/19 History Atorvastatin [Lipitor] 40 mg PO HS@2100 07/05/18 11/20/19 History Acetaminophen [Tylenol] 650 mg PO Q4H PRN 10/28/19 11/20/19 History Albuterol Sulfate [Ventolin HFA] 2 puff INHALATION RT-Q6H PRN 10/28/19 11/20/19 History Allopurinol [Zyloprim] 100 mg PO DAILY@0710/28/19 11/20/19 History Aspirin EC [Ecotrin Low Dose] 81 mg PO DAILY@0710/28/19 11/20/19 History Carvedilol [Coreg] 12.5 mg PO BID@0700,17010/28/19 11/20/19 History Citalopram Hydrobromide [CeleXA] 20 mg PO DAILY@17010/28/19 11/20/19 History Clopidogrel Bisulfate [Plavix] 75 mg PO DAILY@0710/28/19 11/20/19 History Famotidine [Pepcid] 20 mg PO HS@2100 10/28/19 11/20/19 History L.acidoph,Paracasei, B.lactis 2 cap PO DAILY@1200 10/28/19 11/20/19 History [Probiotic] Potassium Chloride ER [K-Dur 20] 20 meq PO DAILY@0700 10/28/19 11/20/19 History Sennosides [Senna] 8.6 mg PO HS@2100 PRN 10/28/19 11/20/19 History Sennosides [Senna] 17.2 mg PO BID@1200,1700 PRN 10/28/19 11/20/19 History Vitamin B Complex/Folic Acid 0.4 mg PO DAILY@0700 10/28/19 11/20/19 History [Vitamin B Complex Tablet] hydrALAZINE HCL [Apresoline] 25 mg PO TID@0700,1300,2100 10/28/19 11/20/19 History polyethylene glycoL 3350 [Miralax] 17 gm PO DAILY PRN 10/28/19 11/20/19 History Gabapentin [Neurontin] 300 mg PO BID@0700,2100 #6 cap 11/01/19 11/20/19 Rx HYDROcodone/APAP 5-325MG [Yoder 1 tab PO QID PRN #12 tab 11/01/19 11/20/19 Rx 5-325] Furosemide [Lasix] 20 mg PO DAILY@0700 11/20/19 11/20/19 History Allergies Allergy/AdvReac Type Severity Reaction Status Date / Time No Known Allergies Allergy Verified 10/30/19 22:57 Surgical - Exam Vital Signs Temp Pulse Resp BP Pulse Ox 100.2 F H 90 18 167/89 95 11/20/19 16:30 11/20/19 16:30 11/20/19 16:30 11/20/19 16:30 11/20/19 16:30 General appearance: The patient is alert, oriented, in no acute distress. HET: Head is normocephalic and atraumatic. Neck: Supple without lymphadenopathy. Trachea midline. Heart: S1 S2. Regular rate and rhythm. Lungs: No crackles or wheezes are heard. Abdomen: Soft, nontender, nondistended with bowel sounds. Extremities: Normal skin color and turgor. Right lower extremity with edema, dressing clean dry intact over right natarajan with nonhealing ulceration to the right lateral lower extremity with muscle exposure and tunneling. No erythema noted around ulcer.. Bilateral palpable femoral pulses, palpable left DP pulse, difficulty palpating right DP pulse due to edema. Doppler signals right DP, bilateral popliteal and PT signals. Bilateral lower extremity warm to touch, with good capillary refill. Neurological: No focal deficits. Strength and sensation are grossly intact. Results CT abdomen and pelvis copy in the chart from [facility] - Labs 11/21/19 05:51 11/21/19 05:51 Abnormal Lab Results - Last 24 Hours (Table) 11/20/19 11/20/19 11/20/19 Range/Units 17:55 17:55 20:54 WBC (3.8-10.6) k/uL RBC (3.80-5.40) m/uL Hgb (11.4-16.0) gm/dL Hct (34.0-46.0) % RDW (11.5-15.5) % Neutrophils # (1.3-7.7) k/uL Sodium (137-145) mmol/L Potassium (3.5-5.1) mmol/L Carbon Dioxide (22-30) mmol/L Plasma Lactic Acid Isidro 2.1 H* 2.3 H* (0.7-2.0) mmol/L Calcium (8.4-10.2) mg/dL Total Protein (6.3-8.2) g/dL Albumin (3.5-5.0) g/dL Urine pH 9.0 H (5.0-8.0) Urine RBC 8 H (0-5) /hpf Urine WBC 71 H (0-5) /hpf Urine Bacteria Rare H (None) /hpf Urine Mucus Rare H (None) /hpf Urine Yeast (Budding) Occasional H (None) /hpf 11/21/19 11/21/19 Range/Units 05:51 05:51 WBC 15.5 H (3.8-10.6) k/uL RBC 3.21 L (3.80-5.40) m/uL Hgb 10.0 L (11.4-16.0) gm/dL Hct 30.9 L (34.0-46.0) % RDW 16.1 H (11.5-15.5) % Neutrophils # 12.6 H (1.3-7.7) k/uL Sodium 136 L (137-145) mmol/L Potassium 3.0 L (3.5-5.1) mmol/L Carbon Dioxide 32 H (22-30) mmol/L Plasma Lactic Acid Isidro (0.7-2.0) mmol/L Calcium 7.8 L (8.4-10.2) mg/dL Total Protein 5.4 L (6.3-8.2) g/dL Albumin 2.5 L (3.5-5.0) g/dL Urine pH (5.0-8.0) Urine RBC (0-5) /hpf Urine WBC (0-5) /hpf Urine Bacteria (None) /hpf Urine Mucus (None) /hpf Urine Yeast (Budding) (None) /hpf Microbiology - Last 24 Hours (Table) 11/20/19 17:55 Urine Culture - Preliminary Urine,Voided Diabetes panel 11/21/19 Range/Units 05:51 Sodium 136 L (137-145) mmol/L Potassium 3.0 L (3.5-5.1) mmol/L Chloride 99 (98-107) mmol/L Carbon Dioxide 32 H (22-30) mmol/L BUN 14 (7-17) mg/dL Creatinine 0.73 (0.52-1.04) mg/dL Glucose 90 (74-99) mg/dL Calcium 7.8 L (8.4-10.2) mg/dL AST 16 (14-36) U/L ALT 10 (4-34) U/L Alkaline Phosphatase 61 (38-126) U/L Total Protein 5.4 L (6.3-8.2) g/dL Albumin 2.5 L (3.5-5.0) g/dL Calcium panel 11/21/19 Range/Units 05:51 Calcium 7.8 L (8.4-10.2) mg/dL Albumin 2.5 L (3.5-5.0) g/dL Pituitary panel 11/21/19 Range/Units 05:51 Sodium 136 L (137-145) mmol/L Potassium 3.0 L (3.5-5.1) mmol/L Chloride 99 (98-107) mmol/L Carbon Dioxide 32 H (22-30) mmol/L BUN 14 (7-17) mg/dL Creatinine 0.73 (0.52-1.04) mg/dL Glucose 90 (74-99) mg/dL Calcium 7.8 L (8.4-10.2) mg/dL Adrenal panel 08/17/20 Range/Units 05:51 Sodium 136 L (137-145) mmol/L Potassium 3.0 L (3.5-5.1) mmol/L Chloride 99 (98-107) mmol/L Carbon Dioxide 32 H (22-30) mmol/L BUN 14 (7-17) mg/dL Creatinine 0.73 (0.52-1.04) mg/dL Glucose 90 (74-99) mg/dL Calcium 7.8 L (8.4-10.2) mg/dL Total Bilirubin 0.7 (0.2-1.3) mg/dL AST 16 (14-36) U/L ALT 10 (4-34) U/L Alkaline Phosphatase 61 (38-126) U/L Total Protein 5.4 L (6.3-8.2) g/dL Albumin 2.5 L (3.5-5.0) g/dL Assessment and Plan Assessment: 1. Suprarenal Abdominal aortic aneurysm measuring 4.9 cm with surrounding thrombus. 2. 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 Occlusion of the left common iliac artery and left external iliac artery with a bifemoral bypass 4. Peripheral arterial disease 5. Right lower extremity ulcer 6. Coffee-ground emesis and melena Plan: This patient as well as the CT abdomen and pelvis results were discussed with Dr. Marte. At this time there is no vascular surgical intervention indicated. We'll continue to follow with patient. Wound clinic for local wound care management. Agree with holding Plavix at this time in lieu of of possible upper GI bleed. Patient is scheduled for EGD tomorrow. Further recommendations to follow. Thank you for this consultation allowing us take part in the plan of care of your patient during her hospital stay. The above dictated assessment and findings were discussed with Dr. Marte. The impression and plan of care have been directed as dictated.
[2019-11-21] MEDS: CITALOPRAM HYDROBROMIDE 20 MG TAB PO SCH (16:20)
[2019-11-21] MEDS: ATORVASTATIN 40 MG TAB PO SCH (20:53)
[2019-11-21] MEDS: FAMOTIDINE 20 MG TAB PO SCH (20:53)
--- NOTE | 2019-11-21 23:59 | CONS ---
CONSULTATION DATE OF DICTATION: 11/21/2019 REASON FOR CONSULTATION: Acute upper gastrointestinal bleed. HISTORY OF PRESENT ILLNESS: The patient is a 74-year-old pleasant white female admitted to the hospital after having a couple of episodes of coffee-ground emesis and 2 episodes of black tarry stools. The patient presently denies any abdominal pain. Since being in the hospital, she did not have any further episodes of bleeding. She had a CT of the abdomen and pelvis done that showed a small abdominal aortic aneurysm. There was a slightly dilated duodenum noted. Her hemoglobin was 12.7 g/dL in the ER. Patient is doing well this morning. She denies any symptoms. PAST MEDICAL HISTORY: Significant for hypertension, hyperlipidemia, peripheral vascular disease. PAST SURGICAL HISTORY: Cholecystectomy, hysterectomy, surgery for peripheral vascular disease, . MEDICATIONS: Medications at home include Procardia, atorvastatin, vitamin D3, calcium supplements, albuterol, Zyloprim, Ecotrin, Coreg, Plavix, Pepcid, probiotics, Senna, potassium chloride. FAMILY HISTORY: Mother had CVA. Father had coronary artery disease. ALLERGIES: None. SOCIAL HISTORY: No smoking, no alcohol use. REVIEW OF SYSTEMS: CARDIOPULMONARY: No chest pain or shortness of breath. GENITOURINARY: No dysuria or hematuria. MUSCULOSKELETAL: Unremarkable. SKIN: Unremarkable. PSYCHIATRIC: Unremarkable. NEUROLOGY: Unremarkable. ENT/VISION: Unremarkable. CONSTITUTIONAL: No recent weight loss. No fever, chills, night sweats. HEMATOLOGY: Mild anemia. ENDOCRINE: Unremarkable. PHYSICAL EXAMINATION: She appears comfortable. No apparent distress. Vital signs are stable. Blood pressure 176/94, pulse rate 80, temperature 98.7. HEENT EXAMINATION: Unremarkable. Conjunctivae pink. Sclerae anicteric. Oral cavity, no lesions. NECK: No JVD or lymph node enlargement. CHEST: Clear to auscultation. HEART: Regular rate and rhythm. ABDOMEN: Soft. Bowel sounds are positive. No organomegaly. EXTREMITIES: No pedal edema. SKIN: No rashes. NEURO: She is alert and oriented x3. No focal deficits. LABS: WBC 15.5, hemoglobin 10, platelets normal. Basic metabolic panel show a sodium of 136, potassium 3, BUN and creatinine are 14 and 0.73, respectively. IMPRESSION: 1. Upper gastrointestinal bleed. The patient presented with a couple of episodes of coffee-ground emesis and 2 episodes of black tarry stools that happened yesterday morning. The patient is hemodynamically stable since being in the hospital. No evidence of active bleeding. Hemoglobin is 10 g/dL. Rule out possibility of peptic ulcer disease. 2. History of peripheral vascular disease, presently on aspirin and Plavix. 3. History of hypertension. 4. History of severe peripheral vascular disease presently maintained on aspirin and Plavix. 5. Hypokalemia. RECOMMENDATIONS: 1. Continue with Protonix 40 mg daily. 2. Monitor CBC on a daily basis. 3. Start her on a clear liquid diet. 4. We will proceed with an upper endoscopy tomorrow. 5. Hold aspirin and Plavix for today. 6. Further recommendations will follow based on the upper endoscopy results. Thank you for this consultation. LUIS AL / IJN: [id number] /
--- NOTE | 2019-11-22 08:15 | P.PN ---
Subjective Progress Note Date: 11/22/19 She is better today, no nausea no vomiting or abdominal pain. No gross bleeding. She is anxious. Objective - Vital Signs Vital signs: Vital Signs Temp 98.4 F 11/22/19 03:28 Pulse 89 11/22/19 03:28 Resp 18 11/22/19 03:28 BP 166/72 11/22/19 03:28 Pulse Ox 98 11/22/19 03:28 Intake & Output 11/21/19 11/22/19 11/22/19 18:59 06:59 18:59 Intake Total 360 Balance 360 Weight 77.564 kg 40 kg Intake: Oral 360 Other: # Voids 1 3 # Bowel Movements 0 - Exam Constitutional: No acute distress, conversant, pleasant Eyes: Anicteric sclerae, moist conjunctiva, no lid-lag, PERRLA ENMT: NC/AT,Oropharynx clear, no erythema, exudates Neck:Supple, FROM, no masses, or JVD Lungs: Clear to auscultation, Clear to percussion, Normal respiratory effort, no accessory muscle use Cardiovascular: Heart regular in rate and rhythm, No murmurs, gallops, or rubs no peripheral edema Abdominal: Soft Nontender, nom distended, no guarding, no rebound or rigidity, Normoactive bowel sounds Skin: Normal temperature, tone, texture, turgor, No induration No subcutaneous nodules, No rash, lesions, No ulcers Extremities:No digital cyanosis No clubbing Psychiatric: Alert and oriented to person, place and time, Appropriate affect Intact judgement Neuro: Muscles Strength 5/5 in all 4 extremities, Sensation to light touch grossly present throughout, Cranial nerves II-XII grossly intact. 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 Abnormal UA -Patient denying urinary complaints -Likely colonization -Hold off on antibiotics at this time Leukocytosis, no signs of active infection at this time -Likely secondary to acute stress, recheck and monitor. Hyperglycemia -Check A1c -No history of diabetes mellitus Right lower extremity ulcer -Wound care DVT prophylaxis -IPCDs Disposition: Home in 1-2 days once clinically stable.
[2019-11-22] MEDS ORDERED: IV FLUID CONTINUATION 1,000 ML IV ONE (12:04)
[2019-11-22] MEDS ORDERED: PROPOFOL 10 MG/ML 20 ML VIAL IV ONE (12:09)
--- NOTE | 2019-11-22 12:17 | P.PCN ---
Date of Procedure: 11/22/19 Procedure(s) Performed: BRIEF HISTORY: Patient is a 74-year-old, pleasant, female admitted to the hospital with acute upper GI bleed. She had a couple of episodes of coffee- ground emesis and black tarry stools. She is hence scheduled for an upper endoscopy to evaluate further. Aspirin and Plavix are on hold for 2 days.. PROCEDURE PERFORMED: Esophagogastroduodenoscopy with cautery. PREOPERATIVE DIAGNOSIS: Acute upper GI bleeding. IV sedation per anesthesia. PROCEDURE: After informed consent was obtained, the patient was brought into the endoscopy unit. IV sedation was administered by Anesthesia under continuous monitoring. Initially the Olympus GIF-140 video endoscope was inserted into the mouth. Esophagus intubated without any difficulty. It was gradually advanced into the stomach and duodenum and carefully examined. The bulb and the second part of the duodenum appeared normal. There was an isolated nonbleeding angiectasia in the second part of the duodenum that was cauterized using a gold probe. The scope at this time was withdrawn to the stomach, adequately insufflated with air, and upon careful examination, mucosa of the antrum, body, cardia and the fundus appeared normal. The scope was then withdrawn into the esophagus. The GE junction was located at 39 cm from the incisors. Small hiatal hernia noted. The esophagus appeared normal. There were no erosions or ulcerations seen and the patient tolerated the procedure well. IMPRESSION: 1. 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 2. Small hiatal hernia. RECOMMENDATIONS: The findings of this examination were discussed with the patient. Diet will be advanced as tolerated. Monitor CBC. Resume an aspirin and Plavix tomorrow.
[2019-11-22] MEDS: allopurinoL 100 MG TAB PO SCH (12:35)
[2019-11-22] MEDS: FUROSEMIDE 20 MG TAB PO SCH (12:35)
[2019-11-22] MEDS: carvediloL 12.5 MG TAB PO SCH ×2 (12:35→16:41)
[2019-11-22] MEDS: PANTOPRAZOLE 40 MG/10 ML VIAL IVP SCH ×2 (12:35→19:51)
[2019-11-22] MEDS: hydrALAZINE HCL 25 MG TAB PO SCH ×3 (12:35→19:50)
[2019-11-22] MEDS: NIFEdipine XL 90 MG TAB.ER.24 PO SCH (12:35)
[2019-11-22] MEDS: POTASSIUM CHLORIDE ER 20 MEQ TAB.ER PO SCH ×3 (12:35→21:14)
[2019-11-22] MEDS: GABAPENTIN 300 MG CAP PO SCH ×2 (12:35→19:50)
[2019-11-22] MEDS: CITALOPRAM HYDROBROMIDE 20 MG TAB PO SCH (16:42)
[2019-11-22] MEDS ORDERED: Potassium Replacement Protocol 1 EACH MISC MISCELLANE PRN (18:39)
[2019-11-22] MEDS: FAMOTIDINE 20 MG TAB PO SCH (19:50)
[2019-11-22] MEDS: ATORVASTATIN 40 MG TAB PO SCH (19:51)
[2019-11-23] MEDS: allopurinoL 100 MG TAB PO SCH (06:22)
[2019-11-23] MEDS: FUROSEMIDE 20 MG TAB PO SCH (06:22)
[2019-11-23] MEDS: NIFEdipine XL 90 MG TAB.ER.24 PO SCH (06:22)
[2019-11-23] MEDS: carvediloL 12.5 MG TAB PO SCH (06:22)
[2019-11-23] MEDS: hydrALAZINE HCL 25 MG TAB PO SCH (06:22)
[2019-11-23] MEDS: GABAPENTIN 300 MG CAP PO SCH (06:23)
[2019-11-23 06:30] LABS: Calcium 8.2 mg/dL (8.4-10.2); Potassium 4.1 mmol/L (3.5-5.1)
[2019-11-23 08:08] VITALS: TEMP 98.6
[2019-11-23 08:13] VITALS: BP 104/55; PULSE 76; RESP 18
[2019-11-23] MEDS: POTASSIUM CHLORIDE ER 20 MEQ TAB.ER PO SCH (09:47)
[2019-11-23] MEDS: PANTOPRAZOLE 40 MG/10 ML VIAL IVP SCH (09:47)
--- NOTE | 2019-11-23 10:31 | P.DS ---
Providers Date of admission: 11/20/19 17:27 Attending physician: Shreyas Dickens MD Consults: 11/20/19 17:27 Consult Physician Urgent Consulting Provider: Gee Tariq Consult Reason/Comments: aaa Do you want consulting provider notified?: Already Contacted 11/20/19 17:28 Consult Physician Urgent Consulting Provider: Mart Villalta Reason/Comments: gi hemorrhage Do you want consulting provider notified?: Yes Primary care physician: Darian Noel [facility] Course: HPI: Patient is a 74-year-old female with a PMH of coronary artery disease, hypertension, hyperlipidemia, peripheral arterial disease, and chronic normocytic anemia who presented to the ED as a transfer from [facility]. The patient reports that she was in her usual state of health until about 11 AM this morning when she suddenly had an episode of coffee-ground emesis. She reported no prodromal symptoms and never experienced any abdominal pain. She then had another episode of coffee-ground emesis a few minutes later followed by 2 black bowel movements. Her activated EMS and the patient was subsequently brought to [facility]. She underwent an extensive evaluation there with a CT abdomen and pelvis with contrast showing a dilated duodenum of 4.2 cm narrowing as it passed between the SMA and a suprarenal abdominal aortic aneurysm. 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 Laboratory evaluation revealed WBC count of 19.2, hemoglobin 12.7, platelets 411, sodium 137, potassium 3.7, chloride 95, CO2 30, BUN 20, creatinine 1.0, and glucose 272. Lipase was 419 with troponin less than 0.05. At time of interview, the patient reported feeling well and denied any active complaints. She was recently discharged from subacute rehab on Thursday. She denied abdominal pain, nausea, vomiting, fever, chills, chest pain, or shortness of breath. EKG in the emergency room at [facility] revealed sinus rhythm at 67 bpm with sinus arrhythmia as reviewed by me with lactic acid of 2.1. Hospital course Patient was admitted to the hospital with coffee-ground emesis, she was treated with IV fluids and IV Protonix. She has history of abdominal aortic aneurysm with thrombus , she was evaluated by vascular surgery, no surgical intervention at this time. Aspirin and Plavix were initially placed on hold, patient was evaluated by GI and underwent an EGD which was consistent with 1. 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 2. Small hiatal hernia. Hospital and Plavix were restarted. Patient did not have any more bleeding episodes, hemoglobin at 10. She will be discharged home on Protonix. Patient Condition at Discharge: Stable Plan - Discharge Summary Discharge Rx Participant: No New Discharge Prescriptions: New Pantoprazole Sodium [Protonix] 40 mg PO DAILY 30 Days #30 tablet.dr Continue Cholecalciferol [Vitamin D3 (25 Mcg = 1000 Iu)] 2,000 unit PO DAILY@0700 NIFEdipine [Procardia XL] 90 mg PO DAILY@0700 Atorvastatin [Lipitor] 40 mg PO HS@2100 Albuterol Sulfate [Ventolin HFA] 2 puff INHALATION RT-Q6H PRN PRN Reason: Nausea Acetaminophen [Tylenol] 650 mg PO Q4H PRN PRN Reason: Pain polyethylene glycoL 3350 [Miralax] 17 gm PO DAILY PRN PRN Reason: Constipation hydrALAZINE HCL [Apresoline] 25 mg PO TID@0700,1300,2100 Sennosides [Senna] 17.2 mg PO BID@1200,1700 PRN PRN Reason: Constipation Carvedilol [Coreg] 12.5 mg PO BID@0700,1700 Vitamin B Complex/Folic Acid [Vitamin B Complex Tablet] 0.4 mg PO DAILY@0700 Sennosides [Senna] 8.6 mg PO HS@2100 PRN PRN Reason: Constipation Potassium Chloride ER [K-Dur 20] 20 meq PO DAILY@0700 L.acidoph,Paracasei, B.lactis [Probiotic] 2 cap PO DAILY@1200 Famotidine [Pepcid] 20 mg PO HS@2100 Citalopram Hydrobromide [CeleXA] 20 mg PO DAILY@1700 Aspirin EC [Ecotrin Low Dose] 81 mg PO DAILY@0700 Allopurinol [Zyloprim] 100 mg PO DAILY@0700 Clopidogrel Bisulfate [Plavix] 75 mg PO DAILY@0700 Gabapentin [Neurontin] 300 mg PO BID@0700,2100 #6 cap HYDROcodone/APAP 5-325MG [[place] 5-325] 1 tab PO QID PRN #12 tab PRN Reason: Pain Furosemide [Lasix] 20 mg PO DAILY@07 Discharge Medication List Cholecalciferol [Vitamin D3 (25 Mcg = 1000 Iu)] 2,000 unit PO DAILY@69906/29/18 [History] NIFEdipine [Procardia XL] 90 mg PO DAILY@69906/29/18 [History] Atorvastatin [Lipitor] 40 mg PO HS@209907/05/18 [History] Acetaminophen [Tylenol] 650 mg PO Q4H PRN 10/28/19 [History] Albuterol Sulfate [Ventolin HFA] 2 puff INHALATION RT-Q6H PRN 10/28/19 [History] Allopurinol [Zyloprim] 100 mg PO DAILY@69910/28/19 [History] Aspirin EC [Ecotrin Low Dose] 81 mg PO DAILY@69910/28/19 [History] Carvedilol [Coreg] 12.5 mg PO BID@0700,17010/28/19 [History] Citalopram Hydrobromide [CeleXA] 20 mg PO DAILY@169910/28/19 [History] Clopidogrel Bisulfate [Plavix] 75 mg PO DAILY@69910/28/19 [History] Famotidine [Pepcid] 20 mg PO HS@209910/28/19 [History] L.acidoph,Paracasei, B.lactis [Probiotic] 2 cap PO DAILY@119910/28/19 [History] Potassium Chloride ER [K-Dur 20] 20 meq PO DAILY@69910/28/19 [History] Sennosides [Senna] 8.6 mg PO HS@2099 PRN 10/28/19 [History] Sennosides [Senna] 17.2 mg PO BID@1200,1700 PRN 10/28/19 [History] Vitamin B Complex/Folic Acid [Vitamin B Complex Tablet] 0.4 mg PO DAILY@69910/28/19 [History] hydrALAZINE HCL [Apresoline] 25 mg PO TID@0700,1300,2100 10/28/19 [History] polyethylene glycoL 3350 [Miralax] 17 gm PO DAILY PRN 10/28/19 [History] Gabapentin [Neurontin] 300 mg PO BID@0700,2100 #6 cap 11/01/19 [Rx] HYDROcodone/APAP 5-325MG [[place] 5-325] 1 tab PO QID PRN #12 tab 11/01/19 [Rx] Furosemide [Lasix] 20 mg PO DAILY@0700 11/20/19 [History] Pantoprazole Sodium [Protonix] 40 mg PO DAILY 30 Days #30 tablet. 11/23/19 [Rx] Follow up Appointment(s)/Referral(s): Darian Ambrosio MD [Primary Care Provider] - 1-2 days [facility] [NON-STAFF] - 1 Week [facility] [NON-STAFF] - Discharge Disposition: HOME SELF-CARE
== END 2019-11-23 14:02 | disposition home health service (06) | DRG 378 ==
LOC: EC 16:28 → 3SCARD 17:27
PROVIDERS: ADMIT Internal Medicine; ATTEND Internal Medicine
PROC: 0D598ZZ Destruction of Duodenum, Via Natural or Artificial Opening Endoscopic (ICD-10-PCS; principal; 2019-11-22 07:30)
DX: K92.0 Hematemesis (principal); I74.5 Embolism and thrombosis of iliac artery; E87.2 Acidosis; L97.212 Non-pressure chronic ulcer of right calf with fat layer exposed; I72.4 Aneurysm of artery of lower extremity; I71.4 Abdominal aortic aneurysm, without rupture; I73.9 Peripheral vascular disease, unspecified; K31.819 Angiodysplasia of stomach and duodenum without bleeding; K44.9 Diaphragmatic hernia without obstruction or gangrene; E87.6 Hypokalemia; E78.5 Hyperlipidemia, unspecified; D64.9 Anemia, unspecified; I25.10 Atherosclerotic heart disease of native coronary artery without angina pectoris; I10 Essential (primary) hypertension; K21.9 Gastro-esophageal reflux disease without esophagitis; D72.829 Elevated white blood cell count, unspecified; F43.9 Reaction to severe stress, unspecified; R73.9 Hyperglycemia, unspecified; R82.90 Unspecified abnormal findings in urine; Z79.82 Long term (current) use of aspirin; Z79.02 Long term (current) use of antithrombotics/antiplatelets; Z79.899 Other long term (current) drug therapy; Z87.891 Personal history of nicotine dependence; Z86.19 Personal history of other infectious and parasitic diseases; Z98.891 History of uterine scar from previous surgery; Z90.49 Acquired absence of other specified parts of digestive tract; Z90.710 Acquired absence of both cervix and uterus; Z87.19 Personal history of other diseases of the digestive system; Z95.828 Presence of other vascular implants and grafts; Z87.42 Personal history of other diseases of the female genital tract; Z98.890 Other specified postprocedural states; Z82.3 Family history of stroke; Z82.49 Family history of ischemic heart disease and other diseases of the circulatory system
CPT/HCPCS: 36415; 43270; 80048; 80053; 81001; 83036; 83605; 83690; 84132; 85025; 85610; 87040; 87086; 93005; 96361; 96374; 96375; 99285